=== PATIENT | male | born 1965 | race Caucasian/White ===

== ENCOUNTER 2018-04-22 12:10 | Observation (INO) | payer OTHER ==
--- NOTE | 2018-04-22 13:57 | ED ---
Lower Extremity - HPI Summary HPI Summary: Patient presents with left calf pain that has been progressing over the past month. He reports this started off as discomfort in the back of his ankle and has been traveling up his calf and now behind his knee. [place] like his leg might give out the other day due to pain when he was getting off of the bus. Denies numbness tingling weakness. Has some swelling in both LE's which he's attributed to his socks. He can still walk up and down stairs without difficulty and no history of back injury however he does report he thinks he has some arthritis in his back and hip. He has not tried anything for his symptoms. He denies smoking, history of cancer, trauma or recent travel, history of clots. His varicose veins in his lower extremities. He does admit his father has a history of clotting. - History of Current Complaint Chief Complaint: EDExtremityLower Stated Complaint: LT LEG PAIN Time Seen by Provider: 04/22/18 13:13 Hx Obtained From: Patient Pain Intensity: 4 - Allergies/Home Medications Allergies/Adverse Reactions: Allergies Allergy/AdvReac Type Severity Reaction Status Date / Time No Known Allergies Allergy Verified 04/22/18 12:37 Home Medications: Home Medications NK [No Home Medications Reported] 04/22/18 [History Confirmed 04/22/18] PMH/Surg Hx/FS Hx/Imm Hx Previously Healthy: Yes Endocrine/Hematology History: Denies: Hx Anticoagulant Therapy, Hx Blood Disorders, Hx Diabetes, Hx Anemia , Hx Unexplained Bleeding, Hx Coagulopothy Cardiovascular History: Denies: Hx Deep Vein Thrombosis, Hx Embolism, Hx Hypertension GI History: Denies: Hx Cirrhosis Musculoskeletal History: Reports: Hx Arthritis - pt dx himself w/ back and hip arthritis Sensory History: Reports: Hx Contacts or Glasses Opthamlomology History: Reports: Hx Contacts or Glasses Neurological History: Denies: Hx Peripheral Neuropathy, Hx Spinal Cord Injury Infectious Disease History: No Infectious Disease History: Denies: Traveled Outside the [place] in Last 30 Days - Family History Known Family History: Positive: Other - mom - bleeding ulcers, father - clots - Social History Occupation: Employed Full-time Lives: Alone Alcohol Use: Rare Hx Substance Use: No Substance Use Type: Reports: None Hx Tobacco Use: No Smoking Status (MU): Never Smoked Tobacco Review of Systems Constitutional: Negative Negative: Fever, Chills, Fatigue Positive: Chest Pain - had an episode of this yesterday morning Positive: Shortness Of Breath - had an episode of this yesterday morning. Negative: Cough Gastrointestinal: Negative Positive: no symptoms reported Musculoskeletal: Negative Skin: Negative Neurological: Negative Psychological: Normal All Other Systems Reviewed And Are Negative: Yes Physical Exam Triage Information Reviewed: Yes Vital Signs On Initial Exam: Initial Vitals Temp Pulse Resp BP Pulse Ox 97.5 F 91 14 128/82 99 04/22/18 12:34 04/22/18 12:34 04/22/18 12:34 04/22/18 12:34 04/22/18 12:34 Vital Signs Reviewed: Yes Appearance: Positive: Well-Appearing, No Pain Distress, Obese Skin: Positive: Warm, Skin Color Reflects Adequate Perfusion, Dry - mild B/L LE edema Lt > Rt w/ slight erythema about the skin - no fever to touch, no lesions , no ecchymosis Head/Face: Positive: Normal Head/Face Inspection Eyes: Positive: Normal, EOMI ENT: Positive: Hearing grossly normal Respiratory/Lung Sounds: Positive: Breath Sounds Present Cardiovascular: Positive: Pulses are Symmetrical in both Upper and Lower Extremities, Leg Edema Left - equivocal Lucita's; varicose v B/L, Leg Edema Right Musculoskeletal: Positive: Normal, Strength/ROM Intact - 5/5 in LE's, Pain @ - Spinous process paraspinal muscles are nontender to palpation; SI joints are nontender to palpation; almost full range of motion lumbar spine (limited due to body habitus and lack of flexibility) without pain or restriction - cannot reproduce symptoms; negative straight leg raise bilaterally; can stand on toes and heels; strength in lower extremities 5 out of 5 and equal bilaterally Neurological: Positive: Normal, Sensory/Motor Intact, Alert, Oriented to Person Place, Time, CN Intact II-III Psychiatric: Positive: Normal Diagnostics - Vital Signs Vital Signs Temp Pulse Resp BP Pulse Ox 04/22/18 12:34 97.5 F 91 14 128/82 99 - Laboratory Result Diagrams: 04/22/18 16:52 04/22/18 16:52 Lab Statement: Any lab studies that have been ordered have been reviewed, and results considered in the medical decision making process. Lower Extremity Course/Dx - Course Course Of Treatment: U/S LE: popliteal, peroneal and posterior tibial vv w/ DVT' s. Although pt currently denies CP/SOB he admits to these sx yesterday morning and w/ extensive DVT's, a CTA was ordered. Labs have been ordered as well. Pt's vitals are stable and he is comfortable. Signed out to Donal Orantes PA-C. - Diagnoses Provider Diagnoses: Deep vein thrombosis (DVT) of popliteal vein of left lower extremity, Peroneal DVT (deep venous thrombosis) Discharge - Sign-Out/Discharge Documenting (check all that apply): Sign-Out Patient Signing out patient TO: Donal Orantes - Discharge Plan Condition: Stable - Billing Disposition and Condition Condition: STABLE
--- NOTE | 2018-04-22 16:55 | RAD ---
Indication: Left calf pain. Duplex Doppler sonography of the deep venous system of the left lower extremity deep venous system was performed. Bilaterally the common femoral veins appear patent and compressible. Left proximal greater saphenous vein, proximal deep femoral vein, femoral vein, appear patent and compressible.There is echogenic material within the left popliteal vein which is occluded distally at the tibial peroneal trunk. Posterior tibial veins and peroneal veins are occluded. IMPRESSION: DEEP VENOUS THROMBOSIS INVOLVING THE LEFT POPLITEAL VEIN, BOTH PERONEAL VEINS AND BOTH POSTERIOR TIBIAL VEINS. MTDD
[2018-04-22 17:03] LABS: Hematocrit 42 % (42-52); Hemoglobin 14.5 g/dl (14.0-18.0); Mean Corpuscular HGB Conc 34 g/dl (31-36); Mean Corpuscular Hemoglobin 31 pg (27-31); Mean Corpuscular Volume 89 fL (80-94); Mean Platelet Volume 6.6 um3 (7.4-10.4); Platelet Count 335 10^3/ul (150-450); Red Blood Count 4.73 10^6/ul (4.0-5.4); Red Cell Distribution Width 13 % (10.5-15); White Blood Count 8.2 10^3/ul (3.5-10.8)
[2018-04-22 17:09] LABS: INR 1.17 (0.77-1.02)
[2018-04-22 17:25] LABS: EGFR Non-African American 94.7 (>60)
[2018-04-22] MEDS ORDERED: Iohexol 350* (CONTRAST) 500 ML MDV IV ONE (17:38)
--- NOTE | 2018-04-22 18:26 | RAD ---
Indication: Shortness of breath with chest pain. Contrast: Administered 85.3 ml of OMNIPAQUE 350 mg/ml CTA of the chest was performed after IV contrast administration. Coronal and sagittal reconstructed images were obtained. There is some motion artifact degrading the images. In the left lower lobe posterior segment pulmonary artery there is a filling defect with peripheral contrast suggestive of pulmonary embolus. No other major filling defects are noted. The aorta demonstrates no evidence of aortic dissection or aneurysmal dilatation. Small right pleural effusion is noted. No pulmonary nodules are identified. There is no mediastinal or hilar adenopathy noted. Axilla demonstrates no adenopathy. No definite pulmonary nodules are identified. There is interstitial edema noted consistent with vascular congestion. Atelectasis is noted in the periphery of the right lower lobe. Small right pleural effusion is noted. The visualized abdominal organs are otherwise unremarkable. Small cortical cysts are noted in the upper pole of the right kidney. IMPRESSION: Filling defect is noted in the posterior segmental artery in the left lower lobe consistent with pulmonary embolus. No other filling defects are definitively identified. Motion artifact degrades some images. Small right pleural effusion is noted. Interstitial edema with atelectasis in the right lower lobe.
--- NOTE | 2018-04-22 19:39 | PN ---
Progress Note - Progress Note Date of Service: 04/22/18 Note: Ultrasound positive for DVT 5. CTA chest positive for PE. Patient does not have PCP, so does not have good follow-up. Discussed patient with Dr. Danielle who will admit.
[2018-04-22] MEDS ORDERED: Enoxaparin(*) 100 MG/ML SYR SUBCUT ONE (19:40)
[2018-04-22] MEDS ORDERED: Ibuprofen TAB* 600 MG PO PRN (19:43)
[2018-04-22] MEDS ORDERED: Acetaminophen TAB* 325 MG PO PRN (19:43)
[2018-04-22] MEDS ORDERED: PROCHLORPERAZINE INJ 5 MG/ML 2 ML VIAL IV PRN (19:43)
[2018-04-22] MEDS ORDERED: Enoxaparin(*) 150 MG/ML 1 ML SYRINGE SUBCUT ONE (20:15)
[2018-04-22] MEDS: NS 0.9% 1000 ML* 1,000 ML IV SCH (20:23)
[2018-04-23 05:15] LABS: ABS Basophils 0.1 10^3/ul (0-0.2); ABS Eosinophils 0.2 10^3/ul (0-0.6); ABS Monocytes 0.6 10^3/ul (0-0.8); ABS Neutrophils 4.4 10^3/ul (1.5-7.7); ABS Nucleated RBC 0 10^3/ul; Eosinophil % 3.9 % (0-6); Hematocrit 38 % (42-52); Hemoglobin 13.1 g/dl (14.0-18.0); Lymphocyte % 16.1 % (25-47); Mean Corpuscular HGB Conc 34 g/dl (31-36); Mean Corpuscular Hemoglobin 30 pg (27-31); Mean Corpuscular Volume 88 fL (80-94); Mean Platelet Volume 6.6 um3 (7.4-10.4); Nucleated Red Blood Cells % 0; Platelet Count 326 10^3/ul (150-450); Red Blood Count 4.35 10^6/ul (4.0-5.4); Red Cell Distribution Width 13 % (10.5-15); White Blood Count 6.3 10^3/ul (3.5-10.8)
[2018-04-23 05:32] LABS: EGFR Non-African American 85.3 (>60)
--- NOTE | 2018-04-23 06:30 | HP ---
HISTORY AND PHYSICAL: DATE OF ADMISSION: 04/22/18 TIME OF EVALUATION: 07:15 p.m. PRIMARY CARE PROVIDER: The patient has no primary care provider. CHIEF COMPLAINT: Left leg pain. HISTORY OF PRESENT ILLNESS: Mr. Bermeo is a 52-year-old male with a past medical history of obesity wh o presented initially to [facility] with complaints of left leg pain and was then referred to our emergency room. The patient states that a month ago he woke up in the middle of the night to go to the bathroom and w hen he put weight on his left leg he had a sudden onset of left calf pain. He was able to ambulate b ack to bed and he has had left calf pain on and off for the past month. He states the pain would usu ally happen with exertion, but as he continued to walk the pain would subside and he was able to cont inue moving. He states that today he was walking towards work (less than a quarter mile) and he felt he would not be able to finish that distance, so he called the cab and went to [facility] where he was referred to the emergency room. The patient states a couple of weeks ago he had an episode of sudden onset of right- sided chest pain , pleuritic in nature, severe 8/10. The patient states he felt like he was being stabbed when he tri ed to take a deep breath, but after 15 minutes of breathing slowly the patient states the pain subsid ed and has not occurred again. The patient denies any prior episodes like this in the past. No falls, no trauma, no recent trips. He lives in [place], [place] in [place]. Denies any long car rides and also denies family history of blo od clots. Denies fevers, chills, cough, nausea, vomiting, diarrhea, abdominal pain, urinary complaints. MEDICATIONS: The patient takes aspirin sporadically for pain. ALLERGIES: No known drug allergies. FAMILY HISTORY: The patient states that his father had a problem with "blood clots", had strokes, melchor d heart attacks. His mother of a heart attack. He has no siblings and he does not recall any f amily history of blood clots in any other distant family members. SOCIAL HISTORY: The patient denies tobacco, alcohol, or drug use. Persons to notify are his ex- Natividad Bray, phone number is [phone] or his friend Yao Aguilera [phone]. REVIEW OF SYSTEMS: A 14-point review of systems was performed, and all the pertinent negatives descr ibed in the HPI. PHYSICAL EXAMINATION GENERAL: The patient is a pleasant, obese, middle-aged male lying in the ED stretcher in no acute di stress. VITAL SIGNS: Temperature 97.5, heart rate is 82, respiratory rate is 14, oxygen saturation 98% on ro om air, and blood pressure is 141/85. HEENT: Pupils are equal. Moist mucous membranes. CHEST: Breath sounds present bilaterally with no added sounds. CVS: Normal S1 and S2. Regular, rate, and rhythm. ABDOMEN: Obese, soft, bowel sounds are present. EXTREMITIES: There is mild left leg edema, no pitting. There is calf tenderness on palpation. NEUROLOGIC: He is alert and oriented x3. Able to move all 4 extremities. LABORATORY/IMAGING DATA: The patient had a CBC that shows RBC of 8.2, hemoglobin of 14.5, hematocri t of 42, platelets of 335. INR is 1.1. Chemistry showed a sodium of 139, potassium 4.4, chloride 10 5, bicarb of 24, BUN of 11, creatinine of 0.85, glucose of 85, calcium of 9.2. LFTs are normal. Left lower extremity DVT showed deep venous thrombosis involving the left popliteal vein, both perone al veins, and both posterior tibial veins. CT of the chest showed a filling defect noted in the posterior segmental artery in the left lower lob e consistent with pulmonary embolus. No other filling defects are definitely identified. There is s mall right pleural effusion with interstitial edema with atelectasis in the right lower lobe. EKG done on 04/22/18 at 1944 showed sinus rhythm at 73 beats per minute with no ST- T changes. Does have a normal R-wave progression. There is no prior EKG to compare. ASSESSMENT AND PLAN: Mr. Bermeo is a 52-year-old male with a past medical history of obesity who prese nted to the emergency room with more than a month of left calf pain, one episode of right-sided pleur itic chest pain, found to have left lower extremity DVT and pulmonary embolism. 1. Pulmonary embolism/DVT. The patient is stable at this time without tachycardia, hypotension, or hypoxia; but the concern is that he does not have a primary care provider and has had limited contact with the health care system. I suspect the findings on his CT of a right-sided pleural effusion and interstitial edema with atelectasis of the right lower lobe apparently associated with a prior PE a couple of weeks ago when he had this severe pleuritic chest pain on the right. The patient will be admitted as observation to the telemetry floor and he is going to have an echocar diogram done in the morning to assess his right ventricular function. I discussed with the patient his anticoagulation options and he wants to think about it and at this p oint he is going to be treated with Lovenox. I believe he will be a good candidate for a NOAC, but t he patient is scared from the side effects that he has heard on the TV commercials. In the morning arrangements can be made for a primary care provider and he can follow up with [facility] until he can establish with the PCP in the area. This is his first episode of unprovoked PE, but since there is this possible family history of blood clots from his father I am going to check a hypercoagulable workup. 2. DVT prophylaxis: The patient has a score of 5 on the DVT prophylaxis assessment guide and he is already on therapeutic Lovenox. SCDs are contraindicating in the setting of DVT. 3. Code status is full. TIME SPENT: Approximately 55-minutes was spent with the patient in interview, medical records, revie w of physical examination to complete the admission; more than half this time was spent [id number] with the patient in coordination of care. [id number]/[facility] #: [id number]
[2018-04-23] MEDS: NS 0.9% 1000 ML* 1,000 ML IV SCH (07:09)
[2018-04-23] MEDS ORDERED: Enoxaparin(*) 150 MG/ML 1 ML SYRINGE SUBCUT SCH (08:00)
[2018-04-23] MEDS ORDERED: Perflutren Lipid Microsphere* 3 ML VIAL ONE (08:06)
--- NOTE | 2018-04-23 08:19 | RAD ---
HISTORY: Left calf pain in a patient with "fam history of clots" TECHNIQUE: Multiple transverse and longitudinal ultrasound images were obtained of the veins of the left lower extremity using grayscale, color Doppler, and spectral Doppler imaging with and without compression and with augmentation. FINDINGS: VEINS: The common femoral vein, deep femoral vein and femoral vein are compressible throughout their course, with normal flow on color Doppler imaging and normal response to augmentation on spectral Doppler imaging. Within the left popliteal vein there is hyperechoic material within the lumen preventing venous wall apposition with compression. There is minimal flow passing this echogenic material. The paired posterior tibial veins and peroneal veins do not exhibit any significant flow. SOFT TISSUES: Grossly normal. No large popliteal fossa cyst was identified. IMPRESSION: Nonocclusive thrombus filling the left popliteal vein above the essentially occluded left infrapopliteal veins.
--- NOTE | 2018-04-23 09:42 | ECHO ---
Amended Report Patient: LUCHO ADEN [facility] Rec#: [id number] : 1965 Date: 04/23/2018 Age: 52y Height: 187.96 cm / 74.0 in Weight: 120.2 kg / 264.9 lbs Sex: M BSA: 2.45 Room#: 433 Admit Date#: 04/22/2018 Type: Inpatient Referring: Darya Mckeon MD Reading: Torey Sparks MD Radiation Protection Engineer: [facility] Tr[facility] Indication: Pulmonary embolism BP: 150/81 HR: 68 Rhythm: NSR Findings History: Obesity, left leg pain for about a month. Technical Comments: The study is technically difficult. The study is technically limited due to patient body habitus. Completed at 0840. Left Ventricle: The left ventricular chamber size is normal. Mild concentric left ventricular hypertrophy is observed. Global left ventricular wall motion and contractility are within normal limits. There is normal left ventricular systolic function. The estimated ejection fraction is 55-60%. There is no consistent Doppler evidence of clinically significant diastolic dysfunction. Left Atrium: The left atrium is mildly dilated. Right Ventricle: The right ventricle is not well visualized. The right ventricle is slightly dilated. The right ventricular global systolic function is normal. Right Atrium: The right atrium is mildly dilated. Aortic Valve: The aortic valve is trileaflet. There is no evidence of aortic valve thickening. There is no evidence of aortic regurgitation. There is no evidence of aortic stenosis. Mitral Valve: The mitral valve leaflets are mildly thickened. There is a trace of mitral regurgitation. There is no evidence of mitral stenosis. Tricuspid Valve: The tricuspid valve leaflets are normal. There is trace to mild tricuspid regurgitation. The right ventricular systolic pressure is estimated at 36 mmHg. There is evidence of mild pulmonary hypertension. There is no tricuspid stenosis. Pulmonic Valve: The pulmonic valve appears normal. There is a trace pulmonic regurgitation. There is no pulmonic stenosis. Pericardium: There is no significant pericardial effusion. A pericardial fat pad is visualized. Aorta: There is mild dilatation of the ascending aorta. There is no dilatation of the aortic arch. The aortic root is normal in size. Pulmonary Artery: The main pulmonary artery appears normal. Venous: The inferior vena cava is dilated. There is an approximate 50% respiratory change in the inferior vena cava dimension. Contrast: Definity was used to optimize study. Intravenous contrast was used to enhance endocardial border definition. Conclusions The study is technically limited due to patient body habitus. Completed at 0840. Mild concentric left ventricular hypertrophy is observed. There is normal left ventricular systolic function. The estimated ejection fraction is 55-60%. The right ventricle is not well visualized, inlimited views overall size is minimally increased and systolic function appears normal.. There is a trace of mitral regurgitation. There is trace to mild tricuspid regurgitation. There is evidence of mild pulmonary hypertension. There is a trace pulmonic regurgitation. No reports of prior studies are offered for comparison. Measurements Name Value Normal Range RVIDd (AP) 2D 3 cm (0.9 - 2.6) RVDdMajor (2D) 5.9 cm (2.2 - 4.4) RAd ISD 4CH 5.2 cm (3.4 - 4.9) RA (A4C)W 5.1 cm (2.9 - 4.6) IVSd (2D) 1.2 cm (0.6 - 1) LVPWd (2D) 1.2 cm (0.6 - 1) LVIDd (2D) 4.3 cm (3.6 - 5.4) LVIDs (2D) 2.3 cm - LV FS (2D) 45 % (25 - 45) Aortic Annulus 2.4 cm (1.4 - 2.6) Ao root diameter (2D) 3.5 cm (2.1 - 3.5) Ascending Ao 3.7 cm (2.1 - 3.4) Aortic arch 2.7 cm (1.8 - 3.4) LA dimension (AP) 2D 3.8 cm (2.3 - 3.8) LAd ISD 4CH 6 cm (2.9 - 5.3) LA ISD 4CH W 4.2 cm (2.5 - 4.5) Name Value Normal Range LA ESV SP 4CH (A/L) 63 ml - LA ESV SP 2CH (A/L) 90 ml - LA ESV BP (A/L) 83 ml - LA ESV BP (A/L) index 34 ml/m2 - LA ESV SP 4CH (MOD) 60 ml - LA ESV SP 2CH (MOD) 83 ml - Name Value Normal Range MV E-wave Vmax 0.71 m/sec - MV deceleration time 164.7 msec - MV A-wave Vmax 0.53 m/sec - MV E:A ratio 1.33 ratio - LV septal e' Vmax 0.08 m/sec - LV lateral e' Vmax 0.08 m/sec - LV E:e' septal ratio 8.88 ratio - LV E:e' lateral ratio 8.88 ratio - Name Value Normal Range AV Vmax 1.4 m/sec - AV VTI 29.93 cm - AV peak gradient 7.63 mmHg - AV mean gradient 3.88 mmHg - LVOT Vmax 1.1 m/sec - LVOT VTI 24.37 cm - LVOT peak gradient 4.92 mmHg - LVOT mean gradient 2.76 mmHg - SCARLET Vmax 0.94 m/sec - Name Value Normal Range TR Vmax 2.3 m/sec - TR peak gradient 21 mmHg - RAP 15 mmHg - RVSP 36 mmHg - IVC diameter 2.5 cm - Name Value Normal Range PV Vmax 0.81 m/sec - PV peak gradient 2.63 mmHg -
[2018-04-23 11:50] VITALS: BP 144/81
[2018-04-23] MEDS ORDERED: Apixaban* 2.5 MG TAB PO SCH (16:00)
--- NOTE | 2018-04-24 09:33 | DS ---
CC: Dr. Gupta * DISCHARGE SUMMARY: DATE OF ADMISSION: 04/22/18 DATE OF DISCHARGE: 04/23/18 ATTENDING PHYSICIAN: Dr. Darya Lopez. MY ATTENDING FOR TODAY: Dr. Corky Kenney.* (DICTATED BY AKIRA STUBBS NP) PRIMARY CARE PHYSICIAN: None. HOSPITAL COURSE: This is a very pleasant 52-year-old gentleman, who reports a 1 - month history of left leg pain and a brief period of stabbing chest pain and shortness of breath while at home, also a couple of weeks ago. The patient came to the emergency department when he had difficulty ambulating, describing symptoms of intermittent claudication on the left calf. The patient states he was also having difficulty with endurance stating that when he was walking across the room having to stop frequently to take rest secondary to pain in the leg and some intermittent shortness of breath. The patient presented to the emergency department with these complaints. Ultrasound of the lower extremities was performed to rule out DVT. Impression is that the patient has nonocclusive thrombus filling of the left popliteal vein and essentially occluded left infrapopliteal veins. The patient had a followup CAT scan as well. CTA of the chest revealed a filling defect noted in the posterior segmental artery of the left lower lobe consistent with pulmonary embolus. No other filling defects were definitively identified. The patient reports having not been to a doctor in 10 years. He has no primary care physician and no community resources. Due to his lack of followup and high risk, it was felt he should be admitted to the emergency department for observation overnight and initiation of anticoagulation. The patient was placed on Lovenox therapeutic 120 mg q.12 hours. He had the first dose in the ER last night and another dose at 8 a.m. this morning. The patient has tolerated it well. Upon examination today, the patient is not complaining of any shortness of breath, denies chest pain. No nausea, no vomiting, no fever, no chills. Does have some tenderness in the left lower calf, but otherwise no further constitutional complaints. PHYSICAL EXAMINATION: Today, the patient is awake, alert, and well appearing. Vital Signs: Blood pressure 144/81, heart rate 75, respiratory rate 16, O2 saturation 98% on room air with a temperature of 98.2. HEENT: The patient is atraumatic and normocephalic. PERRL with nonicteric sclerae. Neck is supple and nontender. No JVD noted. No carotid bruits auscultated. No thyromegaly noted. Cardiovascular: S1 and S2 are present. No murmurs, gallops, or rubs are noted. Rate and rhythm are regular. Lungs are clear bilaterally to auscultation with no wheezes, rhonchi, or rales. He has good air entry. Abdomen is soft, nontender, and nondistended. Positive bowel sounds in all 4 quadrants and no organomegaly noted. Musculoskeletal: There is no clubbing and no cyanosis. His left calf does have good distal pulses, +2 distal pulses on the left lower extremity. However, the skin in the calf does feel tight and he does have some tenderness described with mild palpation. There is no tenderness on the right lower extremity, also has +2 distal pulse on that side. He does have a steady gait. Neurologic: He is grossly intact with no focal deficits. Psychiatric: He is cooperative and appropriate. DIAGNOSTIC STUDIES/LAB DATA: WBC 6.3, RBC is 4.35, hemoglobin 13.1, hematocrit 38, platelets 326. Sodium 138, potassium 3.8, chloride 106, CO2 of 25, BUN 12, creatinine 0.93, GFR is 85.3, glucose 113, calcium 8.6. Total bilirubin 0.50, AST 12, ALT 14, alk phos 43. Total protein 7.5, albumin 4.0, globulin 3.5. INR is 1.17. Imaging: Ultrasound and CAT scan as described above. PLAN: The patient has been stabilized overnight. He will be discharged to home. He is currently in stable condition with no further complaints. Because the patient has not had any primary care followup, he has been set up with the [facility] at [facility] that has been scheduled for 04/27/18 at 2:30 p.m. The patient was also set up with Dr. Devin Gupta on 05/28/18 at 8:45 a.m. DISCHARGE MEDICATION: Includes apixaban 10 mg by mouth 2 times a day for 7 days. The patient's apixaban should be continued thereafter at the lower dose of 5 mg 2 times a day thereafter and then be followed closely with his primary care physician for resolution of symptoms and continued treatment. Also, of significant note, laboratories for hypercoagulability workup were drawn are not available yet. I explained to the patient, when he comes to the extensivist clinic or when he sees Dr. Gupta, the results of those tests will be revealed to him as they become available. The patient will have 1 dose of Eliquis this afternoon and then be discharged to home. The patient states understanding of his discharge instructions and his new medication. He has also been given materials and education on DVT and pulmonary embolus and the new medication he has been started on. AKIRA STUBBS, REN [id number]/[facility] #: [id number] MADELINE
== END 2018-04-23 16:30 ==
LOC: ED 12:10 → MEDTELE 19:37
PROVIDERS: ADMIT Internal Medicine; ATTEND Internal Medicine
DX: R07.9 Chest pain, unspecified (principal); R06.02 Shortness of breath; E66.9 Obesity, unspecified; M79.605 Pain in left leg; I26.99 Other pulmonary embolism without acute cor pulmonale; I82.4Z2 Acute embolism and thrombosis of unspecified deep veins of left distal lower extremity
CPT/HCPCS: 36415; 71275; 80048; 80053; 81241; 85025; 85027; 85300; 85303; 85306; 85610; 85613; 85730; 86147; 93005; 93306; 99284; A9270-GY; C8929; G0378; J1650; Q9967

== ENCOUNTER 2020-01-08 10:48 | Emergency (ER) | payer OTHER ==
[2020-01-08 11:56] LABS: ABS Basophils 0.1 10^3/ul (0-0.2); ABS Lymphocytes 0.6 10^3/ul (1.0-4.8); ABS Monocytes 1.2 10^3/ul (0-0.8); ABS Neutrophils 13.2 10^3/ul (1.5-7.7); Hematocrit 40 % (42-52); Hemoglobin 13.6 g/dL (14.0-18.0); Lymphocyte % 3.7 %; Mean Corpuscular HGB Conc 34 g/dL (31-36); Mean Corpuscular Hemoglobin 30 pg (27-31); Mean Corpuscular Volume 89 fL (80-94); Mean Platelet Volume 7.5 fL (7.4-10.4); Platelet Count 189 10^3/uL (150-450); Red Blood Count 4.52 10^6 /uL (4.18-5.48); Red Cell Distribution Width 14 % (10-15); White Blood Count 15.1 10^3/uL (3.5-10.8)
[2020-01-08 12:01] LABS: Albumin 3.6 g/dL (3.2-5.2); Albumin/Globulin Ratio 1.2 (1-3); BUN/Creatinine Ratio 11.6 (8-20); C Reactive Protein 188.76 mg/L (<8.01); Calcium 8.7 mg/dL (8.6-10.3); EGFR African American 75.6 (>60); EGFR Non-African American 62.5 (>60); Total Bilirubin 0.6 mg/dL (0.2-1.0); Total Protein 6.6 g/dL (6.4-8.9)
[2020-01-08] MEDS ORDERED: NS 0.9% 1000 ML** 1,000 ML IV ONE (12:30)
[2020-01-08] MEDS ORDERED: Clindamycin 600 MG/D5W BAG(*) 600 MG/50 ML BAG IV ONE (12:31)
[2020-01-08] MEDS ORDERED: Acetaminophen TAB* 325 MG PO ONE (13:22)
[2020-01-08 15:09] VITALS: BP 173/108
--- NOTE | 2020-01-09 06:04 | ED ---
Skin Complaint - HPI Summary HPI Summary: This patient is a 54-year-old male presenting to the ED with right lower extremity erythema, warmth and pain. He states symptoms began approximately 3 days ago. He denies any injury, abrasion or laceration. No trauma to the area. He states he had a history of DVT one year ago, took anticoagulation medications for approximately 6 weeks and never return to the ED to obtain more medications. He states this feels somewhat similar, however much worse. The erythema extends just below the knee to just above the right ankle without streaking to the upper leg or to the foot. Full flexion and extension of the knee and of the ankle. Pain to the right lower extremity throughout, not worse to the calf. Patient has been denying any fevers, sweats, chills. He states he did have one episode of vomiting yesterday, but felt that was due to the food he was eating. He states he has been feeling otherwise well. Denies any other body aches. - History of Current Complaint Chief Complaint: EDExtremityLower Time Seen by Provider: 01/08/20 10:57 Stated Complaint: RIGHT LEG PAIN PER PT Hx Obtained From: Patient Onset/Duration: Started Hours Ago Skin Exposure Onset/Duration: Hours Ago Timing: Constant Onset Severity: Moderate Current Severity: Moderate Pain Intensity: 3 Pain Scale Used: 0-10 Numeric Skin Location: Other: Character: Redness Aggravating Symptom(s): Nothing Alleviating Symptom(s): Nothing Associated Signs & Symptoms: Negative - Additional Pertinent History Primary Care Physician: EZIO - Allergy/Home Medications Allergies/Adverse Reactions: Allergies Allergy/AdvReac Type Severity Reaction Status Date / Time No Known Allergies Allergy Verified 01/08/20 10:52 Home Medications: Home Medications Cephalexin CAP* [Keflex CAP*] 500 mg PO QID #28 cap MDD 4 01/08/20 [Rx] traMADol TAB* [Ultram*] 50 mg PO Q8H PRN #12 tab MDD 3 01/08/20 [Rx] PMH/Surg Hx/FS Hx/Imm Hx Previously Healthy: Yes Endocrine/Hematology History: Denies: Hx Anticoagulant Therapy, Hx Blood Disorders, Hx Diabetes, Hx Anemia , Hx Unexplained Bleeding Cardiovascular History: Denies: Hx Deep Vein Thrombosis, Hx Embolism, Hx Hypertension GI History: Denies: Hx Cirrhosis Musculoskeletal History: Reports: Hx Arthritis - pt dx himself w/ back and hip arthritis Sensory History: Denies: Hx Contacts or Glasses, Hx Hearing Aid Opthamlomology History: Denies: Hx Contacts or Glasses Neurological History: Denies: Hx Peripheral Neuropathy, Hx Spinal Cord Injury - Immunization History Hx Pertussis Vaccination: No Immunizations Up to Date: Yes Infectious Disease History: No Infectious Disease History: Denies: Traveled Outside the [place] in Last 30 Days - Family History Known Family History: Positive: Other - mom - bleeding ulcers, father - clots - Social History Occupation: Unemployed Lives: With Family Alcohol Use: Occasionally Hx Substance Use: No Substance Use Type: Reports: None Hx Tobacco Use: No Smoking Status (MU): Never Smoked Tobacco Review of Systems Negative: Fever, Chills, Fatigue, Skin Diaphoresis Negative: Palpitations, Chest Pain Negative: Shortness Of Breath, Cough Genitourinary: Negative Positive: no symptoms reported, see HPI Negative: Arthralgia, Myalgia Positive: Other - erythema and warmth to the R lower extremity Neurological/Mental Status: Negative All Other Systems Reviewed And Are Negative: Yes Physical Exam Triage Information Reviewed: Yes Vital Signs On Initial Exam: Initial Vitals Temp Pulse Resp BP Pulse Ox 98.8 F 114 16 143/89 97 01/08/20 10:49 01/08/20 10:49 01/08/20 10:49 01/08/20 10:49 01/08/20 10:49 Vital Signs Reviewed: Yes Appearance: Positive: Well-Appearing, Well-Nourished Skin: Positive: Warm, Skin Color Reflects Adequate Perfusion, Other - right lower extremity erythema and warmth Head/Face: Positive: Normal Head/Face Inspection Eyes: Positive: EOMI, ANGELINE, Conjunctiva Clear Neck: Positive: Supple, No Lymphadenopathy Respiratory/Lung Sounds: Positive: Clear to Auscultation, Breath Sounds Present Cardiovascular: Positive: Normal, RRR, Pulses are Symmetrical in both Upper and Lower Extremities Musculoskeletal: Positive: Strength/ROM Intact Neurological: Positive: Speech Normal Psychiatric: Positive: Affect/Mood Appropriate AVPU Assessment: Alert Procedures - Sedation Patient Received Moderate/Deep Sedation with Procedure: No Diagnostics - Vital Signs Vital Signs Temp Pulse Resp BP Pulse Ox 01/08/20 15:08 97.6 F 102 20 173/108 98 01/08/20 14:00 24 01/08/20 13:00 114 14 92 01/08/20 12:55 104 20 142/97 100 01/08/20 12:00 115 20 99 01/08/20 11:55 116 22 119/84 100 01/08/20 11:36 103 17 142/84 97 01/08/20 11:24 104 30 130/73 97 01/08/20 11:23 101 18 97 01/08/20 10:49 98.8 F 114 16 143/89 97 - Laboratory Lab Results: Lab Results 01/08/20 01/08/20 Range/Units 11:37 11:37 WBC 15.1 H (3.5-10.8) 10^3/uL RBC 4.52 (4.18-5.48) 10^6 /uL Hgb 13.6 L (14.0-18.0) g/dL Hct 40 L (42-52) % MCV 89 (80-94) fL MCH 30 (27-31) pg MCHC 34 (31-36) g/dL RDW 14 (10-15) % Plt Count 189 (150-450) 10^3/uL MPV 7.5 (7.4-10.4) fL Neut % (Auto) 87.8 % Lymph % (Auto) 3.7 % [place] % (Auto) 8.0 % Eos % (Auto) 0.0 % Baso % (Auto) 0.5 % Absolute Neuts (auto) 13.2 H (1.5-7.7) 10^3/ul Absolute Lymphs (auto) 0.6 L (1.0-4.8) 10^3/ul Absolute Monos (auto) 1.2 H (0-0.8) 10^3/ul Absolute Eos (auto) 0.0 (0-0.6) 10^3/ul Absolute Basos (auto) 0.1 (0-0.2) 10^3/ul Absolute Nucleated RBC 0.0 10^3/ul Nucleated RBC % 0.0 Sodium 133 L (135-145) mmol/L Potassium 4.0 (3.5-5.0) mmol/L Chloride 102 (101-111) mmol/L Carbon Dioxide 25 (22-32) mmol/L Anion Gap 6 (2-11) mmol/L BUN 14 (6-24) mg/dL Creatinine 1.21 H (0.67-1.17) mg/dL Est GFR ( Amer) 75.6 (>60) Est GFR (Non-Af Amer) 62.5 (>60) BUN/Creatinine Ratio 11.6 (8-20) Glucose 128 H (70-100) mg/dL Calcium 8.7 (8.6-10.3) mg/dL Total Bilirubin 0.60 (0.2-1.0) mg/dL AST 17 (13-39) U/L ALT 34 (7-52) U/L Alkaline Phosphatase 46 (34-104) U/L C-Reactive Protein 188.76 H (<8.01) mg/L Total Protein 6.6 (6.4-8.9) g/dL Albumin 3.6 (3.2-5.2) g/dL Globulin 3.0 (2-4) g/dL Albumin/Globulin Ratio 1.2 (1-3) Result Diagrams: 01/08/20 11:37 01/08/20 11:37 Lab Statement: Any lab studies that have been ordered have been reviewed, and results considered in the medical decision making process. Course/Dx - Course Course Of Treatment: Physical examination there is erythema, warmth, and pain to palpation of the lower R leg just below the knee. This extends to just above the R ankle. Denies pain to the upper leg. No worsening pain on palpation to the R calf. No palpable cord. No signs of trauma or bruising. No evidence of streaking. Pt is tachycardic at 114 on arrival. Temp is 97.6. He was given 2L fluids and this reduced to 102. Pt was also given 600mg IV clindamycin. DVT US negative. Pt discharged with cellulitis and given Keflex. Will return to the ED for fevers or worsening symptoms. - Differential Diagnoses - Skin Complaint Differential Diagnoses: Other - DVT - Diagnoses Provider Diagnoses: Cellulitis Discharge ED - Sign-Out/Discharge Documenting (check all that apply): Patient Departure - Discharge Plan Condition: Stable Disposition: HOME Prescriptions: Cephalexin CAP* [Keflex CAP*] 500 mg PO QID #28 cap MDD 4 traMADol TAB* [Ultram*] 50 mg PO Q8H PRN #12 tab MDD 3 PRN Reason: Pain Patient Education Materials: Cellulitis (ED) [facility]errals: [facility] [Outside] - 2 Days No Primary Care Phys,NOPCP [Primary Care Provider] - Additional Instructions: Take 1 tab four times daily x 7 days Please follow up with PCP in a few days If you develop fevers or worsening redness - return to the ED - Billing Disposition and Condition Condition: STABLE Disposition: Home - Attestation Statements Provider Attestation: I was available for consult. This patient was seen by the [facility]. The patient was not presented to, seen by, or examined by me. Claus Rapp MD
== END 2020-01-08 15:08 | disposition home or self-care (01) ==
LOC: ED 10:48
DX: L03.115 Cellulitis of right lower limb (principal); Z86.718 Personal history of other venous thrombosis and embolism
CPT/HCPCS: 36415; 80053; 85025; 86140; 99283; A9270-GY

== ENCOUNTER 2020-01-12 00:01 | Inpatient (IN) | payer OTHER ==
[2020-01-12 02:05] LABS: ABS Basophils 0.1 10^3/ul (0-0.2); ABS Eosinophils 0.1 10^3/ul (0-0.6); ABS Lymphocytes 0.9 10^3/ul (1.0-4.8); ABS Monocytes 1.2 10^3/ul (0-0.8); ABS Neutrophils 11.6 10^3/ul (1.5-7.7); Hematocrit 41 % (42-52); Hemoglobin 13.9 g/dL (14.0-18.0); Lymphocyte % 6.6 %; Mean Corpuscular HGB Conc 34 g/dL (31-36); Mean Corpuscular Hemoglobin 31 pg (27-31); Mean Corpuscular Volume 89 fL (80-94); Mean Platelet Volume 7.3 fL (7.4-10.4); Platelet Count 297 10^3/uL (150-450); Red Blood Count 4.55 10^6 /uL (4.18-5.48); Red Cell Distribution Width 14 % (10-15); White Blood Count 13.8 10^3/uL (3.5-10.8)
[2020-01-12 02:11] LABS: INR 1.36 (0.82-1.09)
[2020-01-12 02:22] LABS: Calcium 9.2 mg/dL (8.6-10.3); EGFR African American 88.1 (>60); EGFR Non-African American 72.8 (>60); Globulin 3.9 g/dL (2-4); Potassium 3.8 mmol/L (3.5-5.0); Total Bilirubin 0.6 mg/dL (0.2-1.0); Total Protein 7.9 g/dL (6.4-8.9)
[2020-01-12 03:19] LABS: Erythrocyte Sed Rate 118 mm/Hr (0-19)
[2020-01-12] MEDS ORDERED: Piperacillin/Tazobac ADVAN(*) 3.375 GM in NS 0.9% 100 ML* 100 ML IVPB ONE (05:31)
--- NOTE | 2020-01-12 05:37 | ED ---
Lower Extremity - HPI Summary HPI Summary: Pt is a 54 y/o M presenting to the ED with a chief complaint of RLE pain. He states he came here Friday and was dxed with right lower leg cellulitis. started on oral abx which he dates has been taking 4 times a day but his sx have worsened. he said his symptoms initially started getting better. hen today the swelling returned and worsened significantly through the day. Increased redness. Weeping blisters. Increased pain. States he's been taking Tylenol for pain. He states he had a Doppler on Friday which showed no DVT. - History of Current Complaint Chief Complaint: EDExtremityLower Stated Complaint: RT LEG PAIN PER PT Time Seen by Provider: 01/12/20 05:11 Hx Obtained From: Patient Mechanism Of Injury: Unknown Onset of Pain: Days Onset/Duration: Days Severity Initially: Moderate Severity Currently: Moderate Pain Intensity: 3 Pain Scale Used: 0-10 Numeric Timing: Constant, Lasting Days Location: Is Discrete @ - R calf Associated Signs And Symptoms: Positive: Swelling, Redness Aggravating Factor(s): Nothing Alleviating Factor(s): Nothing Able to Bear Weight: Yes - Allergies/Home Medications Allergies/Adverse Reactions: Allergies Allergy/AdvReac Type Severity Reaction Status Date / Time eggplant Allergy Vomiting Verified 01/12/20 12:09 tomato Allergy Vomiting Verified 01/12/20 12:09 Home Medications: Home Medications Cephalexin CAP* [Keflex CAP*] 500 mg PO QID #28 cap MDD 4 01/08/20 [Rx Confirmed 01/12/20] traMADol TAB* [Ultram*] 50 mg PO Q8H PRN #12 tab MDD 3 01/08/20 [Rx Confirmed ] PMH/Surg Hx/FS Hx/Imm Hx Previously Healthy: Yes Endocrine/Hematology History: Denies: Hx Anticoagulant Therapy, Hx Blood Disorders, Hx Diabetes, Hx Anemia , Hx Unexplained Bleeding Cardiovascular History: Denies: Hx Deep Vein Thrombosis, Hx Embolism, Hx Hypertension GI History: Denies: Hx Cirrhosis Musculoskeletal History: Reports: Hx Arthritis - pt dx himself w/ back and hip arthritis Sensory History: Denies: Hx Contacts or Glasses, Hx Hearing Aid Opthamlomology History: Denies: Hx Contacts or Glasses Neurological History: Denies: Hx Peripheral Neuropathy, Hx Spinal Cord Injury Infectious Disease History: No Infectious Disease History: Denies: Traveled Outside the [place] in Last 30 Days - Family History Known Family History: Positive: Other - mom - bleeding ulcers, father - clots - Social History Alcohol Use: Occasionally Hx Substance Use: No Substance Use Type: Reports: None Hx Tobacco Use: No Smoking Status (MU): Never Smoked Tobacco Review of Systems - ROS Summary Review of Systems Summary: Home Medications Medication Instructions Recorded Confirmed Type Cephalexin CAP* [Keflex CAP*] 500 mg PO QID #28 cap MDD 4 01/08/20 01/12/20 Rx traMADol TAB* [Ultram*] 50 mg PO Q8H PRN #12 tab MDD 3 01/08/20 01/12/20 Rx Positive: Myalgia, Edema Positive: Rash, Other - blisters, purulence, erythema All Other Systems Reviewed And Are Negative: Yes Physical Exam - Summary Physical Exam Summary: General: Obese, unkempt male. No acute distress. HEENT: Normocephalic, Atraumatic. Eyes: Conjuctiva normal, PERRL. Oropharynx: Clear, mucous membranes moist, (-) exudates. Neck: Soft, FROM, (-) lymphadenopathy, (-) thyromegaly, (-) JVD. Cardiovascular: Normal sinus rhythm, (-) murmur. Lungs: Clear to auscultation bilaterally (-) wheezes, (-) rales, (-) rhonchi. Abdomen: Soft, non-tender, non-distended, (-) organomegaly, normal bowel sounds. Back: (-) CVA tenderness Extremities: Significant edema and erythema of the RLE, predominantly distal to the knee, including the ankle and foot. Normal pulses and capillary refill. Significant erythema with blisters. Skin: Warm, dry, (-) rash. Neuro: Alert and oriented x3, moves all extremities equally. No ataxia. No gait disturbance. No sensory deficit. Normal strength, normal sensation. Psychiatric: Mood normal, affect normal. Triage Information Reviewed: Yes Vital Signs On Initial Exam: Initial Vitals Temp Pulse Resp BP Pulse Ox 96.6 F 112 20 134/78 96 01/12/20 00:02 01/12/20 00:02 01/12/20 00:02 01/12/20 00:02 01/12/20 00:02 Vital Signs Reviewed: Yes Procedures - Sedation Patient Received Moderate/Deep Sedation with Procedure: No Diagnostics - Vital Signs Vital Signs Temp Pulse Resp BP Pulse Ox 01/12/20 02:12 98.5 F 100 16 124/82 99 01/12/20 00:02 96.6 F 112 20 134/78 96 - Laboratory Lab Results: Lab Results 01/12/20 01/12/20 01/12/20 Range/Units 01:58 01:58 01:58 WBC 13.8 H (3.5-10.8) 10^3/uL RBC 4.55 (4.18-5.48) 10^6 /uL Hgb 13.9 L (14.0-18.0) g/dL Hct 41 L (42-52) % MCV 89 (80-94) fL MCH 31 (27-31) pg MCHC 34 (31-36) g/dL RDW 14 (10-15) % Plt Count 297 (150-450) 10^3/uL MPV 7.3 L (7.4-10.4) fL Neut % (Auto) 83.6 % Lymph % (Auto) 6.6 % [place] % (Auto) 8.4 % Eos % (Auto) 1.0 % Baso % (Auto) 0.4 % Absolute Neuts (auto) 11.6 H (1.5-7.7) 10^3/ul Absolute Lymphs (auto) 0.9 L (1.0-4.8) 10^3/ul Absolute Monos (auto) 1.2 H (0-0.8) 10^3/ul Absolute Eos (auto) 0.1 (0-0.6) 10^3/ul Absolute Basos (auto) 0.1 (0-0.2) 10^3/ul Absolute Nucleated RBC 0.0 10^3/ul Nucleated RBC % 0.0 ESR 118 H (0-19) mm/Hr INR (Anticoag Therapy) 1.36 H (0.82-1.09) Sodium 136 (135-145) mmol/L Potassium 3.8 (3.5-5.0) mmol/L Chloride 101 (101-111) mmol/L Carbon Dioxide 25 (22-32) mmol/L Anion Gap 10 (2-11) mmol/L BUN 17 (6-24) mg/dL Creatinine 1.06 (0.67-1.17) mg/dL Est GFR ( Amer) 88.1 (>60) Est GFR (Non-Af Amer) 72.8 (>60) BUN/Creatinine Ratio 16.0 (8-20) Glucose 110 H (70-100) mg/dL Lactic Acid (0.5-2.0) mmol/L Calcium 9.2 (8.6-10.3) mg/dL Total Bilirubin 0.60 (0.2-1.0) mg/dL AST 40 H (13-39) U/L ALT 83 H (7-52) U/L Alkaline Phosphatase 100 (34-104) U/L Total Protein 7.9 (6.4-8.9) g/dL Albumin 4.0 (3.2-5.2) g/dL Globulin 3.9 (2-4) g/dL Albumin/Globulin Ratio 1.0 (1-3) 02//20 Range/Units 01:58 WBC (3.5-10.8) 10^3/uL RBC (4.18-5.48) 10^6 /uL Hgb (14.0-18.0) g/dL Hct (42-52) % MCV (80-94) fL MCH (27-31) pg MCHC (31-36) g/dL RDW (10-15) % Plt Count (150-450) 10^3/uL MPV (7.4-10.4) fL Neut % (Auto) % Lymph % (Auto) % [place] % (Auto) % Eos % (Auto) % Baso % (Auto) % Absolute Neuts (auto) (1.5-7.7) 10^3/ul Absolute Lymphs (auto) (1.0-4.8) 10^3/ul Absolute Monos (auto) (0-0.8) 10^3/ul Absolute Eos (auto) (0-0.6) 10^3/ul Absolute Basos (auto) (0-0.2) 10^3/ul Absolute Nucleated RBC 10^3/ul Nucleated RBC % ESR (0-19) mm/Hr INR (Anticoag Therapy) (0.82-1.09) Sodium (135-145) mmol/L Potassium (3.5-5.0) mmol/L Chloride (101-111) mmol/L Carbon Dioxide (22-32) mmol/L Anion Gap (2-11) mmol/L BUN (6-24) mg/dL Creatinine (0.67-1.17) mg/dL Est GFR ( Amer) (>60) Est GFR (Non-Af Amer) (>60) BUN/Creatinine Ratio (8-20) Glucose (70-100) mg/dL Lactic Acid 1.2 (0.5-2.0) mmol/L Calcium (8.6-10.3) mg/dL Total Bilirubin (0.2-1.0) mg/dL AST (13-39) U/L ALT (7-52) U/L Alkaline Phosphatase (34-104) U/L Total Protein (6.4-8.9) g/dL Albumin (3.2-5.2) g/dL Globulin (2-4) g/dL Albumin/Globulin Ratio (1-3) Result Diagrams: 01/12/20 01:58 01/12/20 01:58 Lab Statement: Any lab studies that have been ordered have been reviewed, and results considered in the medical decision making process. Lower Extremity Course/Dx - Course Course Of Treatment: 54-year-old male presents with a worsening right lower leg swelling and pain. Started on . Was seen here Friday started on what sounds like Keflex. He states he's been taking his medicine. And initially seemed to be getting better. However today the swelling has returned. More erythema. Now has weeping blisters and increased pain as well. Taking Tylenol for pain. Physical exam he has significant erythema and tenderness. Large weeping blisters. Good pulse and capillary refill distally. Laboratories demonstrated an elevated white count. Normal lactate. Patient initially refused a DVT study. He was conflicted with having the painful study done again. He denied any narcotics because he didn't want to feel loopy. Did accept Tylenol for pain. Agreed to admission for IV antibiotics. Agreed to DVT. Patient referred to hospitalist for admission. - Diagnoses Provider Diagnoses: Leg edema, Lower extremity cellulitis Discharge ED - Sign-Out/Discharge Documenting (check all that apply): Patient Departure - Admit - Discharge Plan Condition: Stable Disposition: ADMITTED TO [facility] - Billing Disposition and Condition Condition: STABLE Disposition: Admitted to [facility] - Attestation Statements Document Initiated by Blancaibe: Yes Documenting Scribe: Cesia Morales Provider For Whom Ming is Documenting (Include Credential): Pearl Yañez MD. Scribe Attestation: Cesia Stewart, scribed for Pearl Yañez MD. on 01/12/20 at 2041. Scribe Documentation Reviewed: Yes Provider Attestation: The documentation as recorded by the scribe, Cesia Morales accurately reflects the service I personally performed and the decisions made by me, Pearl Yañez MD. Status of Scribe Document: Viewed
[2020-01-12 05:44] LABS: Urine Appearance Cloudy; Urine Bilirubin Negative (Negative); Urine Blood 1+ (Negative); Urine Color Amber; Urine Glucose Negative (Negative); Urine Ketones Trace (Negative); Urine Nitrite Negative (Negative); Urine Protein 1+(30 mg/dL) (Negative); Urine Specific Gravity 1.028 (1.010-1.030); Urine Urobilinogen Negative (Negative)
[2020-01-12 05:48] LABS: Urine Bacteria Absent (Absent); Urine Red Blood Cell Absent (Absent); Urine Squamous Epithelial Cell Present (Absent); Urine White Blood Cell Trace(0-5/hpf) (Absent)
--- NOTE | 2020-01-12 07:06 | ED ---
Progress - Progress Note Progress Note: This pt was signed out from Dr. Yañez to Dr. Pablo at shift change on 01/12/20 at 0700. Course/Dx - Diagnoses Provider Diagnoses: Leg edema, Lower extremity cellulitis Discharge ED - Sign-Out/Discharge Documenting (check all that apply): Receiving Sign-Out Receiving patient FROM: Pearl Yañez - Discharge Plan Condition: Stable Referrals: [facility] [Outside] - Attestation Statements Document Initiated by Scribe: Yes Documenting Scribe: Keiry Doran Provider For Whom Scribe is Documenting (Include Credential): Aguilar Pablo MD Scribe Attestation: IKeiry, scribed for Aguilar Pablo MD on 01/12/20 at 0705. Status of Scribe Document: Viewed
[2020-01-12] MEDS ORDERED: Acetaminophen TAB* 325 MG PO ONE (07:42)
[2020-01-12] MEDS ORDERED: Docusate CAP* 100 MG PO PRN (08:14)
[2020-01-12] MEDS ORDERED: Ondansetron INJ* 2 MG/ML VIAL IV PRN (08:15)
[2020-01-12 08:37] LABS: C Reactive Protein 264.33 mg/L (<8.01)
[2020-01-12] MEDS ORDERED: Zosyn per Pharmacy* NOTE FOLLOW UP SCH (09:00)
[2020-01-12] MEDS: Piperacillin/Tazobac ADVAN(*) 3.375 GM in NS 0.9% 100 ML* 100 ML IVPB SCH ×2 (11:23→17:42)
[2020-01-12] MEDS: Enoxaparin(*) 40 MG/0.4 ML SYR SUBCUT SCH (11:23)
[2020-01-12] MEDS: Ibuprofen TAB* 400 MG PO PRN ×2 (11:23→17:42)
[2020-01-12] MEDS: Acetaminophen TAB* 325 MG PO PRN ×2 (14:17→20:13)
[2020-01-12] MEDS: NS 0.9% 1000 ML** 1,000 ML IV SCH (17:43)
--- NOTE | 2020-01-12 22:34 | HP ---
HISTORY AND PHYSICAL: DATE OF ADMISSION: 01/12/20 CHIEF COMPLAINT: Right lower extremity pain and swelling. HISTORY OF PRESENT ILLNESS: This 54-year-old male presented to the emergency room 4 days after being diagnosed with lower extremity cellulitis. On the prior ER visit, he was started on oral Keflex. He went home, however, his pain continued to get worse, swelling continued to get worse and the redness as well. He came into the ER to be further evaluated. On evaluation, his leg was noted to be much more erythematous and more swollen. He was evaluated and hospitalist service called to assist and evaluate the patient for admission. He was seen and evaluated by me in the emergency room. History was obtained as above. The patient denies any trauma. No insect bite or injury to his lower extremity. He works in [employer]. He does have significant amount of day standing on his leg. He denies any fever or chills, but he does report significant fatigue and malaise. PAST MEDICAL HISTORY: Significant for generalized arthritis. MEDICATIONS: Denies any other than the Keflex, which was prescribed to him 4 days prior. ALLERGIES: He is allergic to TOMATO and EGGPLANT. FAMILY HISTORY: Father has history of coronary artery disease. Mother has history of peptic ulcer disease. SOCIAL HISTORY: No tobacco, no alcohol, no illicit drug use. He works in the [employer] at [employer]. Single. No kids. REVIEW OF SYSTEMS: As per HPI. Remaining others unremarkable. PHYSICAL EXAMINATION GENERAL: He is awake, alert, oriented, pleasant, slightly poor hygiene. VITAL SIGNS: Blood pressure 146/71, pulse 102, temperature 97, respirations 16 , satting 99%. HEENT: Normocephalic, atraumatic. Extraocular muscles intact. NECK: Supple. No carotid bruit. LUNGS: Good air flow bilaterally. ABDOMEN: Positive bowel sounds. Soft, nontender, nondistended, obese. EXTREMITIES: Right lower extremity erythema. DIAGNOSTIC STUDY: CBC shows white count 15.8, hemoglobin 13, hematocrit 41, platelet 297, INR 1.3. Chemistry shows sodium 136, potassium 3.8, BUN 17, creatinine 1, glucose 110. Lactic 1.2. AST 40, ALT 83, CRP 264. UA: 1+ protein, 1+ blood, negative bacteria. Antistreptolysin titer negative. Ultrasound, right lower extremity, no evidence of DVT. ASSESSMENT AND PLAN: This is a 54-year-old who comes in with a right lower extremity cellulitis, will be admitted for cellulitis, failed outpatient Keflex. 1. The patient will be placed on IV Zosyn as per pharmacy. 2. Tylenol p.r.n. for pain and alternate with Motrin. 3. DVT prophylaxis: Lovenox 40 subcu daily. [id number]/[facility] #: [id number] MTDD
[2020-01-13] MEDS: Ibuprofen TAB* 400 MG PO PRN ×4 (00:11→18:36)
[2020-01-13] MEDS: Piperacillin/Tazobac ADVAN(*) 3.375 GM in NS 0.9% 100 ML* 100 ML IVPB SCH ×2 (02:10→09:30)
[2020-01-13] MEDS: Acetaminophen TAB* 325 MG PO PRN ×4 (04:21→21:12)
[2020-01-13] MEDS: Pantoprazole TAB * 40 MG TAB PO SCH (05:47)
[2020-01-13 06:25] LABS: ABS Eosinophils 0.1 10^3/ul (0-0.6); ABS Lymphocytes 0.8 10^3/ul (1.0-4.8); Eosinophil % 1.2 %; Hematocrit 38 % (42-52); Hemoglobin 12.9 g/dL (14.0-18.0); Lymphocyte % 8.2 %; Mean Corpuscular HGB Conc 34 g/dL (31-36); Mean Corpuscular Hemoglobin 30 pg (27-31); Mean Corpuscular Volume 90 fL (80-94); Mean Platelet Volume 7.3 fL (7.4-10.4); Platelet Count 296 10^3/uL (150-450); Red Blood Count 4.26 10^6 /uL (4.18-5.48); Red Cell Distribution Width 14 % (10-15)
[2020-01-13 06:37] LABS: Calcium 8.4 mg/dL (8.6-10.3); Magnesium 2.2 mg/dL (1.9-2.7); Potassium 3.9 mmol/L (3.5-5.0)
[2020-01-13 06:43] LABS: BUN/Creatinine Ratio 16.8 (8-20); EGFR African American 93.1 (>60); Phosphorus 2.7 mg/dL (2.5-5.0)
--- NOTE | 2020-01-13 08:54 | PN ---
Subjective Date of Service: 01/13/20 Interval History: Patient seen today, still complaining of his right leg pain. No fever and his wbc improving. His leg does appears more edematous, no improvement as compared to yesterday. Increased blisters and secretions. I discussed with ID and will see patient today. Currently on Zosyn Past Medical History: Unchanged from Admission Objective Active Medications: Acetaminophen (Tylenol Tab*) 650 mg PO Q4H PRN PRN Reason: PAIN Last Admin: 01/13/20 04:21 Dose: 650 mg Docusate Sodium (Colace Cap*) 100 mg PO BID PRN PRN Reason: CONSTIPATION Enoxaparin Sodium (Lovenox(*)) 40 mg SUBCUT Q24H [facility] Last Admin: 01/12/20 11:23 Dose: 40 mg Sodium Chloride (Ns 0.9% 1000 Ml) 1,000 mls @ 100 mls/hr IV PER RATE [facility] Stop: 01/14/20 08:14 Last Admin: 01/12/20 17:43 Dose: 100 mls/hr Piperacillin Sod/Tazobactam (Sod 3.375 gm/ Sodium Chloride) 100 mls @ 25 mls/ hr IVPB Q8H [facility] Last Admin: 01/13/20 02:10 Dose: 25 mls/hr Ibuprofen (Motrin Tab*) 400 mg PO Q6H PRN PRN Reason: PAIN - SEVERE Last Admin: 01/13/20 06:16 Dose: 400 mg Ondansetron HCl (Zofran Inj*) 4 mg IV Q6H PRN PRN Reason: NAUSEA Pantoprazole Sodium (Protonix Tab*) 40 mg PO DAILY@0600 [facility] Last Admin: 01/13/20 05:47 Dose: Not Given Pharmacy Consult (Zosyn Per Pharmacy*) 1 note FOLLOW UP .ZOSYN PER PHARMACY [facility] Vital Signs - 8 hr 01/13/20 01/13/20 02:56 08:03 Temperature 97.7 F 97.5 F Pulse Rate 89 93 Respiratory 16 18 Rate Blood Pressure 122/54 141/75 (mmHg) O2 Sat by Pulse 97 95 Oximetry Oxygen Devices in Use Now: None Appearance: Awake, alert. no distress. RLE Eyes: No Scleral Icterus, PERRLA Ears/Nose/Mouth/Throat: NL Teeth, Lips, Gums, Mucous Membranes Moist Neck: Trachea Midline Respiratory: Symmetrical Chest Expansion and Respiratory Effort, Clear to Auscultation Cardiovascular: NL Sounds; No Murmurs; No JVD Result Diagrams: 01/13/20 05:46 01/13/20 05:46 Additional Lab and Data: Lab Results 01/12/20 01/12/20 01/12/20 Range/Units 01:58 01:58 01:58 WBC 13.8 H (3.5-10.8) 10^3/uL RBC 4.55 (4.18-5.48) 10^6 /uL Hgb 13.9 L (14.0-18.0) g/dL Hct 41 L (42-52) % MCV 89 (80-94) fL MCH 31 (27-31) pg MCHC 34 (31-36) g/dL RDW 14 (10-15) % Plt Count 297 (150-450) 10^3/uL MPV 7.3 L (7.4-10.4) fL Neut % (Auto) 83.6 % Lymph % (Auto) 6.6 % [place] % (Auto) 8.4 % Eos % (Auto) 1.0 % Baso % (Auto) 0.4 % Absolute Neuts (auto) 11.6 H (1.5-7.7) 10^3/ul Absolute Lymphs (auto) 0.9 L (1.0-4.8) 10^3/ul Absolute Monos (auto) 1.2 H (0-0.8) 10^3/ul Absolute Eos (auto) 0.1 (0-0.6) 10^3/ul Absolute Basos (auto) 0.1 (0-0.2) 10^3/ul Absolute Nucleated RBC 0.0 10^3/ul Nucleated RBC % 0.0 ESR 118 H (0-19) mm/Hr INR (Anticoag Therapy) 1.36 H (0.82-1.09) Sodium 136 (135-145) mmol/L Potassium 3.8 (3.5-5.0) mmol/L Chloride 101 (101-111) mmol/L Carbon Dioxide 25 (22-32) mmol/L Anion Gap 10 (2-11) mmol/L BUN 17 (6-24) mg/dL Creatinine 1.06 (0.67-1.17) mg/dL Est GFR ( Amer) 88.1 (>60) Est GFR (Non-Af Amer) 72.8 (>60) BUN/Creatinine Ratio 16.0 (8-20) Glucose 110 H (70-100) mg/dL Lactic Acid (0.5-2.0) mmol/L Calcium 9.2 (8.6-10.3) mg/dL Total Bilirubin 0.60 (0.2-1.0) mg/dL AST 40 H (13-39) U/L ALT 83 H (7-52) U/L Alkaline Phosphatase 100 (34-104) U/L Total Protein 7.9 (6.4-8.9) g/dL Albumin 4.0 (3.2-5.2) g/dL Globulin 3.9 (2-4) g/dL Albumin/Globulin Ratio 1.0 (1-3) 01/12/20 Range/Units 01:58 WBC (3.5-10.8) 10^3/uL RBC (4.18-5.48) 10^6 /uL Hgb (14.0-18.0) g/dL Hct (42-52) % MCV (80-94) fL MCH (27-31) pg MCHC (31-36) g/dL RDW (10-15) % Plt Count (150-450) 10^3/uL MPV (7.4-10.4) fL Neut % (Auto) % Lymph % (Auto) % [place] % (Auto) % Eos % (Auto) % Baso % (Auto) % Absolute Neuts (auto) (1.5-7.7) 10^3/ul Absolute Lymphs (auto) (1.0-4.8) 10^3/ul Absolute Monos (auto) (0-0.8) 10^3/ul Absolute Eos (auto) (0-0.6) 10^3/ul Absolute Basos (auto) (0-0.2) 10^3/ul Absolute Nucleated RBC 10^3/ul Nucleated RBC % ESR (0-19) mm/Hr INR (Anticoag Therapy) (0.82-1.09) Sodium (135-145) mmol/L Potassium (3.5-5.0) mmol/L Chloride (101-111) mmol/L Carbon Dioxide (22-32) mmol/L Anion Gap (2-11) mmol/L BUN (6-24) mg/dL Creatinine (0.67-1.17) mg/dL Est GFR ( Amer) (>60) Est GFR (Non-Af Amer) (>60) BUN/Creatinine Ratio (8-20) Glucose (70-100) mg/dL Lactic Acid 1.2 (0.5-2.0) mmol/L Calcium (8.6-10.3) mg/dL Total Bilirubin (0.2-1.0) mg/dL AST (13-39) U/L ALT (7-52) U/L Alkaline Phosphatase (34-104) U/L Total Protein (6.4-8.9) g/dL Albumin (3.2-5.2) g/dL Globulin (2-4) g/dL Albumin/Globulin Ratio (1-3) Microbiology and Other Data: Microbiology 01/12/20 01:41 Aerobic Blood Culture - Preliminary Blood Venous No Growth Day 1 Anaerobic Blood Culture - Preliminary No Growth Day 1 01/12/20 01:56 Aerobic Blood Culture - Preliminary Blood Venous No Growth Day 1 Anaerobic Blood Culture - Preliminary No Growth Day 1 Assess/Plan/Problems-Billing Assessment: 54 y/o male presented to ED for persistent RLE cellulitis failed outpatient Kelfex. Now on Zosyn - Patient Problems (1) Cellulitis Current Visit: Yes Status: Acute Code(s): L03.90 - CELLULITIS, UNSPECIFIED SNOMED Code(s): 955553629 Comment: - Failed outpatient keflex - Now on Zosyn day #2 - No significant improvement despite zosyn. I did call ID for further antibiotic coverage recommendations (Vanco, Merropene etc...) - Will send for Xray to rule out subcutaneous air - US of leg negative for DVT on admissions (2) DVT prophylaxis Current Visit: Yes Status: Acute Code(s): Z29.9 - ENCOUNTER FOR PROPHYLACTIC MEASURES, UNSPECIFIED SNOMED Code(s): 473311822 Comment: - Lovenox 40 mg SQ daily
--- NOTE | 2020-01-13 09:11 | PN ---
Work Excuse - Work Note Work Note: The above employee has been evaluated on 01/12/20. The physician has instructed the employee concerning further work as described below. Work Status: [Patient is admitted in the hospital on 01/12/20 and he remains in the hospital for his acute medical illness. Once patient is cleared for discharge will follow up with further recommendations. At this time patient is to remain in the hospital] William Dougherty MD 01/13/200910
[2020-01-13] MEDS: NS 0.9% 1000 ML** 1,000 ML IV SCH ×2 (09:30→21:09)
[2020-01-13] MEDS: Enoxaparin(*) 40 MG/0.4 ML SYR SUBCUT SCH (09:30)
[2020-01-13] MEDS ORDERED: Clindamycin 600 MG/D5W BAG(*) 600 MG/50 ML BAG IV SCH (10:00)
--- NOTE | 2020-01-13 11:13 | CONS ---
CONSULTATION REPORT: DATE OF CONSULT: 01/13/20 REQUESTING PHYSICIAN: Dr. Dougherty. CONSULTING SERVICE: Infectious Disease. REASON FOR CONSULTATION: Right leg cellulitis. IMPRESSION: 1. Right lower extremity cellulitis with bulla formation, which is typical of Group A streptococcus toxin production. 2. Morbid obesity. 3. History of deep venous thrombosis and pulmonary embolism. RECOMMENDATIONS: We will change his antibiotics to clindamycin 600 mg IV every 8 hours and reassess tomorrow. He will keep the leg elevated as much as possible. Most of his pain and swelling related symptoms are gravity related. HISTORY OF PRESENT ILLNESS: This is a 54-year-old male with obesity, history of PE, admitted with right leg pain and swelling that had been going on for a few weeks. He had been seen in the emergency room and started on cephalexin. Despite that, he had progression of swelling, pain, and redness. He did not have much in the way of fevers, chills, or sweats. He came to the hospital on 01/12/20. He had a Doppler ultrasound that showed no thrombus. He was started on Zosyn. The redness is starting to come down a bit he thinks today. His swelling persists. He is continuing to have pain, particularly with when he is up on it more or his leg is dangling. Once he is back in bed, the pain comes way back down. He has not had infection like this in the past. PAST MEDICAL HISTORY: 1. DVT and pulmonary embolism. 2. Arthritis. MEDICATIONS: 1. Tylenol. 2. Enoxaparin. 3. Docusate. 4. Ibuprofen. 5. Zosyn 3.375 g every 8 hours. 6. Pantoprazole. ALLERGIES: No known drug allergies. FAMILY HISTORY: Father had coronary artery disease. Mother had peptic ulcer disease. SOCIAL HISTORY: He is a nonsmoker. He works at [employer] at [place]. He lives in apartment. He has a pet cat. REVIEW OF SYSTEMS: All negative except as noted above to 12-point review of systems. PHYSICAL EXAM: Vital Signs: Temperature 36.4, heart rate 90, respiratory rate 18, blood pressure 141/75, oxygen saturation 95% on room air. In general, he is awake, not in distress. Neurologic: He is oriented x3. Follows all commands. HEENT: There is no conjunctival hemorrhage. Oropharynx without lesions. Neck is supple without mass. Heart is regular rate and rhythm without murmurs, rubs, or gallops. Lungs are clear to auscultation bilaterally. Abdomen: Soft, nontender, nondistended. Bowel sounds present. Skin: There is no rash or splinter hemorrhage. Musculoskeletal: There is no spine tenderness to palpation. On the right leg below the knee and above the ankle, there is diffuse erythema with mild warmth and edema with tenderness. There is no crepitus or fluctuance. There are multiple confluent bullae with serous contents and some serous drainage. DIAGNOSTIC STUDIES/LAB DATA: White blood cell count 10, down from 13.8; creatinine is 1; CRP was 264. Please see impressions and recommendations outlined above that I discussed with Dr. Dougherty. Thanks for asking me to see Chica Jean-Claude in consultation. [id number]/[facility] #: [id number] MTDD
[2020-01-13] MEDS: Clindamycin 600 MG/D5W BAG(*) 600 MG/50 ML BAG IV SCH ×2 (14:08→21:21)
[2020-01-14] MEDS: Ibuprofen TAB* 400 MG PO PRN ×3 (00:59→17:01)
[2020-01-14] MEDS: Acetaminophen TAB* 325 MG PO PRN ×4 (04:57→23:19)
[2020-01-14] MEDS: Pantoprazole TAB * 40 MG TAB PO SCH (05:44)
[2020-01-14 06:07] LABS: ABS Basophils 0.1 10^3/ul (0-0.2); ABS Eosinophils 0.2 10^3/ul (0-0.6); ABS Lymphocytes 0.9 10^3/ul (1.0-4.8); ABS Monocytes 0.8 10^3/ul (0-0.8); ABS Neutrophils 6.3 10^3/ul (1.5-7.7); Eosinophil % 1.9 %; Hematocrit 35 % (42-52); Hemoglobin 12.1 g/dL (14.0-18.0); Lymphocyte % 10.6 %; Mean Corpuscular HGB Conc 34 g/dL (31-36); Mean Corpuscular Hemoglobin 31 pg (27-31); Mean Corpuscular Volume 90 fL (80-94); Mean Platelet Volume 6.9 fL (7.4-10.4); Platelet Count 310 10^3/uL (150-450); Red Blood Count 3.91 10^6 /uL (4.18-5.48); Red Cell Distribution Width 14 % (10-15); White Blood Count 8.2 10^3/uL (3.5-10.8)
[2020-01-14] MEDS: Clindamycin 600 MG/D5W BAG(*) 600 MG/50 ML BAG IV SCH ×3 (06:14→21:09)
[2020-01-14 06:27] LABS: BUN/Creatinine Ratio 13.5 (8-20); C Reactive Protein 154.56 mg/L (<8.01); Calcium 8.2 mg/dL (8.6-10.3); EGFR African American 107.8 (>60); EGFR Non-African American 89.1 (>60); Potassium 4.2 mmol/L (3.5-5.0)
[2020-01-14] MEDS: Enoxaparin(*) 40 MG/0.4 ML SYR SUBCUT SCH (08:33)
[2020-01-14] MEDS: Lactobacillus Acidophilus* 1 TAB PO SCH ×2 (08:34→21:08)
[2020-01-14 09:05] LABS: Erythrocyte Sed Rate 111 mm/Hr (0-19)
--- NOTE | 2020-01-14 10:56 | PN ---
Progress Note - Progress Note Date of Service: 01/14/20 SOAP: Subjective: CC: Right LE cellulitis HPI: Mr. Bermeo is a 54 yo male with PMH significant for hx DVT/PE, arthritis and obesity; who presented to the hospital with complaints of right LE pain and swelling and was diagnosed with right LE cellulitis. Denies fever, chills, nausea, vomiting, or diarrhea. Reports continued edema in the right LE and weeping from the skin on the lower leg. Objective: Vital Signs - 8 hr 01/14/20 01/14/20 01/14/20 03:10 07:15 08:00 Temperature 97.6 F 97.8 F Pulse Rate 92 86 Respiratory 16 16 18 Rate Blood Pressure 124/46 149/88 (mmHg) O2 Sat by Pulse 100 99 Oximetry Physical Exam: General: NAD, sitting up on the side of the bed Neurological: Alert and Oriented HEENT: Moist MM Cardiovascular: Heart rate regular. 2+ edema right LE Respiratory: Lung sounds clear bilateral Abdominal: Bowel sounds present; ABD obese, soft, non tender MSK: Able to move right ankle and knee Skin: Erythema below the right knee to foot, there is bullea formation and serous drainage. Right LE is warm to touch Laboratory Results - last 24 hr 01/14/20 01/14/20 05:57 05:57 WBC 8.2 RBC 3.91 L Hgb 12.1 L Hct 35 L MCV 90 MCH 31 MCHC 34 RDW 14 Plt Count 310 MPV 6.9 L Neut % (Auto) 76.7 Lymph % (Auto) 10.6 [place] % (Auto) 10.1 Eos % (Auto) 1.9 Baso % (Auto) 0.7 Absolute Neuts (auto) 6.3 Absolute Lymphs (auto) 0.9 L Absolute Monos (auto) 0.8 Absolute Eos (auto) 0.2 Absolute Basos (auto) 0.1 Absolute Nucleated RBC 0.0 Nucleated RBC % 0.0 ESR 111 H Sodium 138 Potassium 4.2 Chloride 107 Carbon Dioxide 24 Anion Gap 7 BUN 12 Creatinine 0.89 Est GFR ( Amer) 107.8 Est GFR (Non-Af Amer) 89.1 BUN/Creatinine Ratio 13.5 Glucose 114 H Calcium 8.2 L C-Reactive Protein 154.56 H Microbiology 01/12/20 01:56 Aerobic Blood Culture - Preliminary Blood Venous No Growth Day 2 Anaerobic Blood Culture - Preliminary No Growth Day 2 01/12/20 01:41 Aerobic Blood Culture - Preliminary Blood Venous No Growth Day 2 Anaerobic Blood Culture - Preliminary No Growth Day 2 01/12/20 05:26 Urine Culture - Final Urine No Growth (<1,000 CFU/mL) Assessment: 1. Right LE cellulitis. Bullae formation, LE with serous drainage. Suspect this is a Group A strep infection. Blood cultures with no growth to date. Elevated CRP. Afebrile and no leukocytosis. 2. Morbid obesity. BMI 39.1. 3. History DVT/PE. Plan: Continue Clindamycin 600 mg IV every 8 hours. Encourage to keep right LE elevated.
[2020-01-14] MEDS: Acetic Acid 0.25%* 250 ML BTL IRRIGATION SCH ×2 (11:12→19:53)
[2020-01-14] MEDS: Magnesium Sulfate CRYSTAL* 454 GM BOX TOPICAL SCH ×2 (11:12→19:53)
--- NOTE | 2020-01-14 14:45 | PN ---
Subjective Date of Service: 01/14/20 Interval History: Patient seen today, doing well. No fever or chills. leg still swollen. awake appreciate ID input. Past Medical History: Unchanged from Admission Objective Active Medications: Acetaminophen (Tylenol Tab*) 650 mg PO Q4H PRN PRN Reason: PAIN Last Admin: 01/14/20 13:20 Dose: 650 mg Acetic Acid (Acetic Acid 0.25%*) 120 ml IRRIGATION BID [facility] Stop: 01/16/20 21:01 Last Admin: 01/14/20 11:12 Dose: 120 ml Docusate Sodium (Colace Cap*) 100 mg PO BID PRN PRN Reason: CONSTIPATION Enoxaparin Sodium (Lovenox(*)) 40 mg SUBCUT Q24H [facility] Last Admin: 01/14/20 08:33 Dose: 40 mg Clindamycin HCl/Dextrose (Cleocin 600 Mg/50 Ml(*)) 600 mg in 50 mls @ 100 mls/ hr IV 0600,1400,2200 [facility] Last Admin: 01/14/20 13:19 Dose: 100 mls/hr Ibuprofen (Motrin Tab*) 400 mg PO Q6H PRN PRN Reason: PAIN - SEVERE Last Admin: 01/14/20 08:33 Dose: 400 mg Lactobacillus Rhamnosus (Lactobacillus Acidophilus*) 1 tab PO BID [facility] Last Admin: 01/14/20 08:34 Dose: 1 tab Magnesium Sulfate (Epsom Salt*) 0.25 applic TOPICAL BID [facility] Stop: 01/16/20 21:01 Last Admin: 01/14/20 11:12 Dose: 0.25 applic Ondansetron HCl (Zofran Inj*) 4 mg IV Q6H PRN PRN Reason: NAUSEA Pantoprazole Sodium (Protonix Tab*) 40 mg PO DAILY@0600 [facility] Last Admin: 01/14/20 05:44 Dose: Not Given Vital Signs - 8 hr 01/14/20 01/14/20 01/14/20 07:15 08:00 11:15 Temperature 97.8 F 98.1 F Pulse Rate 86 90 Respiratory 16 18 16 Rate Blood Pressure 149/88 146/77 (mmHg) O2 Sat by Pulse 99 97 Oximetry Oxygen Devices in Use Now: None Appearance: awake, alert no distress Eyes: No Scleral Icterus, - - EOMI Ears/Nose/Mouth/Throat: NL Teeth, Lips, Gums Neck: NL Appearance and Movements; NL JVP Respiratory: Symmetrical Chest Expansion and Respiratory Effort, Clear to Auscultation Cardiovascular: NL Sounds; No Murmurs; No JVD, RRR Abdominal: NL Sounds; No Tenderness; No Distention Extremities: - - mulitple confluent bullae, with serrous content and drainage, erythema Result Diagrams: 01/14/20 05:57 01/14/20 05:57 Additional Lab and Data: Lab Results 01/12/20 01/12/20 01/12/20 Range/Units 01:58 01:58 01:58 WBC 13.8 H (3.5-10.8) 10^3/uL RBC 4.55 (4.18-5.48) 10^6 /uL Hgb 13.9 L (14.0-18.0) g/dL Hct 41 L (42-52) % MCV 89 (80-94) fL MCH 31 (27-31) pg MCHC 34 (31-36) g/dL RDW 14 (10-15) % Plt Count 297 (150-450) 10^3/uL MPV 7.3 L (7.4-10.4) fL Neut % (Auto) 83.6 % Lymph % (Auto) 6.6 % [place] % (Auto) 8.4 % Eos % (Auto) 1.0 % Baso % (Auto) 0.4 % Absolute Neuts (auto) 11.6 H (1.5-7.7) 10^3/ul Absolute Lymphs (auto) 0.9 L (1.0-4.8) 10^3/ul Absolute Monos (auto) 1.2 H (0-0.8) 10^3/ul Absolute Eos (auto) 0.1 (0-0.6) 10^3/ul Absolute Basos (auto) 0.1 (0-0.2) 10^3/ul Absolute Nucleated RBC 0.0 10^3/ul Nucleated RBC % 0.0 ESR 118 H (0-19) mm/Hr INR (Anticoag Therapy) 1.36 H (0.82-1.09) Sodium 136 (135-145) mmol/L Potassium 3.8 (3.5-5.0) mmol/L Chloride 101 (101-111) mmol/L Carbon Dioxide 25 (22-32) mmol/L Anion Gap 10 (2-11) mmol/L BUN 17 (6-24) mg/dL Creatinine 1.06 (0.67-1.17) mg/dL Est GFR ( Amer) 88.1 (>60) Est GFR (Non-Af Amer) 72.8 (>60) BUN/Creatinine Ratio 16.0 (8-20) Glucose 110 H (70-100) mg/dL Lactic Acid (0.5-2.0) mmol/L Calcium 9.2 (8.6-10.3) mg/dL Total Bilirubin 0.60 (0.2-1.0) mg/dL AST 40 H (13-39) U/L ALT 83 H (7-52) U/L Alkaline Phosphatase 100 (34-104) U/L Total Protein 7.9 (6.4-8.9) g/dL Albumin 4.0 (3.2-5.2) g/dL Globulin 3.9 (2-4) g/dL Albumin/Globulin Ratio 1.0 (1-3) / Range/Units 01:58 WBC (3.5-10.8) 10^3/uL RBC (4.18-5.48) 10^6 /uL Hgb (14.0-18.0) g/dL Hct (42-52) % MCV (80-94) fL MCH (27-31) pg MCHC (31-36) g/dL RDW (10-15) % Plt Count (150-450) 10^3/uL MPV (7.4-10.4) fL Neut % (Auto) % Lymph % (Auto) % [place] % (Auto) % Eos % (Auto) % Baso % (Auto) % Absolute Neuts (auto) (1.5-7.7) 10^3/ul Absolute Lymphs (auto) (1.0-4.8) 10^3/ul Absolute Monos (auto) (0-0.8) 10^3/ul Absolute Eos (auto) (0-0.6) 10^3/ul Absolute Basos (auto) (0-0.2) 10^3/ul Absolute Nucleated RBC 10^3/ul Nucleated RBC % ESR (0-19) mm/Hr INR (Anticoag Therapy) (0.82-1.09) Sodium (135-145) mmol/L Potassium (3.5-5.0) mmol/L Chloride (101-111) mmol/L Carbon Dioxide (22-32) mmol/L Anion Gap (2-11) mmol/L BUN (6-24) mg/dL Creatinine (0.67-1.17) mg/dL Est GFR ( Amer) (>60) Est GFR (Non-Af Amer) (>60) BUN/Creatinine Ratio (8-20) Glucose (70-100) mg/dL Lactic Acid 1.2 (0.5-2.0) mmol/L Calcium (8.6-10.3) mg/dL Total Bilirubin (0.2-1.0) mg/dL AST (13-39) U/L ALT (7-52) U/L Alkaline Phosphatase (34-104) U/L Total Protein (6.4-8.9) g/dL Albumin (3.2-5.2) g/dL Globulin (2-4) g/dL Albumin/Globulin Ratio (1-3) Microbiology and Other Data: Microbiology 01/12/20 01:41 Aerobic Blood Culture - Preliminary Blood Venous No Growth Day 1 Anaerobic Blood Culture - Preliminary No Growth Day 1 01/12/20 01:56 Aerobic Blood Culture - Preliminary Blood Venous No Growth Day 1 Anaerobic Blood Culture - Preliminary No Growth Day 1 Assess/Plan/Problems-Billing Assessment: 54 y/o male presented to ED for persistent RLE cellulitis failed outpatient Kelfex. Now on Zosyn - Patient Problems (1) Cellulitis Current Visit: Yes Status: Acute Code(s): L03.90 - CELLULITIS, UNSPECIFIED SNOMED Code(s): 651671364 Comment: - Failed outpatient keflex - s/p Zosyn day #2. transioned to clindaymycin 600 mg IV Q6hr day #1 - ID input appreciated. - Xray negative for subcutaneous air - US of leg negative for DVT on admissions - Will soak both feet with soap, water and M[place]ulfate crystal and acetic acid bath bid (2) DVT prophylaxis Current Visit: Yes Status: Acute Code(s): Z29.9 - ENCOUNTER FOR PROPHYLACTIC MEASURES, UNSPECIFIED SNOMED Code(s): 536873030 Comment: - Lovenox 40 mg SQ daily
[2020-01-15] MEDS: Ibuprofen TAB* 400 MG PO PRN ×2 (04:12→17:39)
[2020-01-15] MEDS: Pantoprazole TAB * 40 MG TAB PO SCH (05:40)
[2020-01-15] MEDS: Clindamycin 600 MG/D5W BAG(*) 600 MG/50 ML BAG IV SCH ×3 (05:44→22:11)
[2020-01-15] MEDS: Lactobacillus Acidophilus* 1 TAB PO SCH ×2 (09:50→21:14)
[2020-01-15] MEDS: Acetaminophen TAB* 325 MG PO PRN ×3 (09:50→21:14)
[2020-01-15] MEDS: Enoxaparin(*) 40 MG/0.4 ML SYR SUBCUT SCH (09:51)
[2020-01-15] MEDS: Magnesium Sulfate CRYSTAL* 454 GM BOX TOPICAL SCH ×2 (13:43→20:18)
[2020-01-15] MEDS: Acetic Acid 0.25%* 250 ML BTL IRRIGATION SCH ×2 (13:43→20:17)
--- NOTE | 2020-01-15 16:12 | PN ---
Subjective Date of Service: 01/15/20 Interval History: patient seen, leg improving., his right foot much better now that is being soaked bid. No fever or chills. no events overnight Past Medical History: Unchanged from Admission Objective Active Medications: Acetaminophen (Tylenol Tab*) 650 mg PO Q4H PRN PRN Reason: PAIN Last Admin: 01/15/20 13:43 Dose: 650 mg Acetic Acid (Acetic Acid 0.25%*) 120 ml IRRIGATION BID [facility] Stop: 01/16/20 21:01 Last Admin: 01/15/20 13:43 Dose: 120 ml Docusate Sodium (Colace Cap*) 100 mg PO BID PRN PRN Reason: CONSTIPATION Enoxaparin Sodium (Lovenox(*)) 40 mg SUBCUT Q24H [facility] Last Admin: 01/15/20 09:51 Dose: 40 mg Clindamycin HCl/Dextrose (Cleocin 600 Mg/50 Ml(*)) 600 mg in 50 mls @ 100 mls/ hr IV 0600,1400,2200 [facility] Last Admin: 01/15/20 13:44 Dose: 100 mls/hr Ibuprofen (Motrin Tab*) 400 mg PO Q6H PRN PRN Reason: PAIN - SEVERE Last Admin: 01/15/20 04:12 Dose: 400 mg Lactobacillus Rhamnosus (Lactobacillus Acidophilus*) 1 tab PO BID [facility] Last Admin: 01/15/20 09:50 Dose: 1 tab Magnesium Sulfate (Epsom Salt*) 0.25 applic TOPICAL BID [facility] Stop: 01/16/20 21:01 Last Admin: 01/15/20 13:43 Dose: 0.25 applic Ondansetron HCl (Zofran Inj*) 4 mg IV Q6H PRN PRN Reason: NAUSEA Pantoprazole Sodium (Protonix Tab*) 40 mg PO DAILY@0600 [facility] Last Admin: 01/15/20 05:40 Dose: Not Given Vital Signs - 8 hr 01/15/20 01/15/20 08:00 11:15 Temperature 98 F Pulse Rate 91 Respiratory 16 16 Rate Blood Pressure 136/77 (mmHg) O2 Sat by Pulse 97 Oximetry Oxygen Devices in Use Now: None Appearance: Awake, alert no fever or chills. taking po Eyes: No Scleral Icterus, - - EOMI Ears/Nose/Mouth/Throat: NL Teeth, Lips, Gums, Mucous Membranes Moist Neck: NL Appearance and Movements; NL JVP Respiratory: Symmetrical Chest Expansion and Respiratory Effort, Clear to Auscultation Cardiovascular: NL Sounds; No Murmurs; No JVD, RRR Skin: No Rash or Ulcers Neurological: Alert and Oriented x 3 Result Diagrams: 01/14/20 05:57 01/14/20 05:57 Additional Lab and Data: Lab Results 01/12/20 01/12/20 01/12/20 Range/Units 01:58 01:58 01:58 WBC 13.8 H (3.5-10.8) 10^3/uL RBC 4.55 (4.18-5.48) 10^6 /uL Hgb 13.9 L (14.0-18.0) g/dL Hct 41 L (42-52) % MCV 89 (80-94) fL MCH 31 (27-31) pg MCHC 34 (31-36) g/dL RDW 14 (10-15) % Plt Count 297 (150-450) 10^3/uL MPV 7.3 L (7.4-10.4) fL Neut % (Auto) 83.6 % Lymph % (Auto) 6.6 % [place] % (Auto) 8.4 % Eos % (Auto) 1.0 % Baso % (Auto) 0.4 % Absolute Neuts (auto) 11.6 H (1.5-7.7) 10^3/ul Absolute Lymphs (auto) 0.9 L (1.0-4.8) 10^3/ul Absolute Monos (auto) 1.2 H (0-0.8) 10^3/ul Absolute Eos (auto) 0.1 (0-0.6) 10^3/ul Absolute Basos (auto) 0.1 (0-0.2) 10^3/ul Absolute Nucleated RBC 0.0 10^3/ul Nucleated RBC % 0.0 ESR 118 H (0-19) mm/Hr INR (Anticoag Therapy) 1.36 H (0.82-1.09) Sodium 136 (135-145) mmol/L Potassium 3.8 (3.5-5.0) mmol/L Chloride 101 (101-111) mmol/L Carbon Dioxide 25 (22-32) mmol/L Anion Gap 10 (2-11) mmol/L BUN 17 (6-24) mg/dL Creatinine 1.06 (0.67-1.17) mg/dL Est GFR ( Amer) 88.1 (>60) Est GFR (Non-Af Amer) 72.8 (>60) BUN/Creatinine Ratio 16.0 (8-20) Glucose 110 H (70-100) mg/dL Lactic Acid (0.5-2.0) mmol/L Calcium 9.2 (8.6-10.3) mg/dL Total Bilirubin 0.60 (0.2-1.0) mg/dL AST 40 H (13-39) U/L ALT 83 H (7-52) U/L Alkaline Phosphatase 100 (34-104) U/L Total Protein 7.9 (6.4-8.9) g/dL Albumin 4.0 (3.2-5.2) g/dL Globulin 3.9 (2-4) g/dL Albumin/Globulin Ratio 1.0 (1-3) 02// Range/Units 01:58 WBC (3.5-10.8) 10^3/uL RBC (4.18-5.48) 10^6 /uL Hgb (14.0-18.0) g/dL Hct (42-52) % MCV (80-94) fL MCH (27-31) pg MCHC (31-36) g/dL RDW (10-15) % Plt Count (150-450) 10^3/uL MPV (7.4-10.4) fL Neut % (Auto) % Lymph % (Auto) % [place] % (Auto) % Eos % (Auto) % Baso % (Auto) % Absolute Neuts (auto) (1.5-7.7) 10^3/ul Absolute Lymphs (auto) (1.0-4.8) 10^3/ul Absolute Monos (auto) (0-0.8) 10^3/ul Absolute Eos (auto) (0-0.6) 10^3/ul Absolute Basos (auto) (0-0.2) 10^3/ul Absolute Nucleated RBC 10^3/ul Nucleated RBC % ESR (0-19) mm/Hr INR (Anticoag Therapy) (0.82-1.09) Sodium (135-145) mmol/L Potassium (3.5-5.0) mmol/L Chloride (101-111) mmol/L Carbon Dioxide (22-32) mmol/L Anion Gap (2-11) mmol/L BUN (6-24) mg/dL Creatinine (0.67-1.17) mg/dL Est GFR ( Amer) (>60) Est GFR (Non-Af Amer) (>60) BUN/Creatinine Ratio (8-20) Glucose (70-100) mg/dL Lactic Acid 1.2 (0.5-2.0) mmol/L Calcium (8.6-10.3) mg/dL Total Bilirubin (0.2-1.0) mg/dL AST (13-39) U/L ALT (7-52) U/L Alkaline Phosphatase (34-104) U/L Total Protein (6.4-8.9) g/dL Albumin (3.2-5.2) g/dL Globulin (2-4) g/dL Albumin/Globulin Ratio (1-3) Microbiology and Other Data: Microbiology 01/12/20 01:41 Aerobic Blood Culture - Preliminary Blood Venous No Growth Day 1 Anaerobic Blood Culture - Preliminary No Growth Day 1 01/12/20 01:56 Aerobic Blood Culture - Preliminary Blood Venous No Growth Day 1 Anaerobic Blood Culture - Preliminary No Growth Day 1 Assess/Plan/Problems-Billing Assessment: 54 y/o male presented to ED for persistent RLE cellulitis failed outpatient Kelfex. Now on Zosyn - Patient Problems (1) Cellulitis Current Visit: Yes Status: Acute Code(s): L03.90 - CELLULITIS, UNSPECIFIED SNOMED Code(s): 929801071 Comment: - Failed outpatient keflex - s/p Zosyn day #2. Transioned to clindamycin 600 mg IV Q6hr day #2 - ID input appreciated. - Xray negative for subcutaneous air - US of leg negative for DVT on admissions - Will soak both feet with soap, water and Magsulfate crystal and acetic acid bath bid (2) DVT prophylaxis Current Visit: Yes Status: Acute Code(s): Z29.9 - ENCOUNTER FOR PROPHYLACTIC MEASURES, UNSPECIFIED SNOMED Code(s): 813580442 Comment: - Lovenox 40 mg SQ daily
[2020-01-16] MEDS: Acetaminophen TAB* 325 MG PO PRN ×5 (04:37→23:30)
[2020-01-16] MEDS: Pantoprazole TAB * 40 MG TAB PO SCH (06:26)
[2020-01-16] MEDS: Clindamycin 600 MG/D5W BAG(*) 600 MG/50 ML BAG IV SCH ×3 (06:27→22:19)
[2020-01-16] MEDS: Lactobacillus Acidophilus* 1 TAB PO SCH ×2 (08:26→22:19)
[2020-01-16] MEDS: Enoxaparin(*) 40 MG/0.4 ML SYR SUBCUT SCH (08:26)
[2020-01-16] MEDS: Magnesium Sulfate CRYSTAL* 454 GM BOX TOPICAL SCH ×2 (09:47→22:19)
[2020-01-16] MEDS: Acetic Acid 0.25%* 250 ML BTL IRRIGATION SCH ×2 (09:47→22:19)
--- NOTE | 2020-01-16 12:58 | PN ---
Subjective Date of Service: 01/16/20 Interval History: Patient seen feels better, he is eager to go home. tolerating med and compliant with his foot bath Past Medical History: Unchanged from Admission Objective Active Medications: Acetaminophen (Tylenol Tab*) 650 mg PO Q4H PRN PRN Reason: PAIN Last Admin: 01/16/20 08:25 Dose: 650 mg Acetic Acid (Acetic Acid 0.25%*) 120 ml IRRIGATION BID [facility] Stop: 01/16/20 21:01 Last Admin: 01/16/20 09:47 Dose: 120 ml Docusate Sodium (Colace Cap*) 100 mg PO BID PRN PRN Reason: CONSTIPATION Enoxaparin Sodium (Lovenox(*)) 40 mg SUBCUT Q24H [facility] Last Admin: 01/16/20 08:26 Dose: 40 mg Furosemide (Lasix Tab*) 20 mg PO DAILY [facility] Clindamycin HCl/Dextrose (Cleocin 600 Mg/50 Ml(*)) 600 mg in 50 mls @ 100 mls/ hr IV 0600,1400,2200 [facility] Last Admin: 01/16/20 06:27 Dose: 100 mls/hr Ibuprofen (Motrin Tab*) 400 mg PO Q6H PRN PRN Reason: PAIN - SEVERE Last Admin: 01/15/20 17:39 Dose: 400 mg Lactobacillus Rhamnosus (Lactobacillus Acidophilus*) 1 tab PO BID [facility] Last Admin: 01/16/20 08:26 Dose: 1 tab Magnesium Sulfate (Epsom Salt*) 0.25 applic TOPICAL BID [facility] Stop: 01/16/20 21:01 Last Admin: 01/16/20 09:47 Dose: 0.25 applic Ondansetron HCl (Zofran Inj*) 4 mg IV Q6H PRN PRN Reason: NAUSEA Pantoprazole Sodium (Protonix Tab*) 40 mg PO DAILY@0600 [facility] Last Admin: 01/16/20 06:26 Dose: 40 mg Vital Signs - 8 hr 01/16/20 01/16/20 07:15 11:14 Temperature 97.5 F 98 F Pulse Rate 89 91 Respiratory 14 18 Rate Blood Pressure 147/78 132/72 (mmHg) O2 Sat by Pulse 98 99 Oximetry Oxygen Devices in Use Now: None Appearance: awake, alert no fever or chills Ears/Nose/Mouth/Throat: Mucous Membranes Moist Neck: NL Appearance and Movements; NL JVP, Trachea Midline Respiratory: Symmetrical Chest Expansion and Respiratory Effort, Clear to Auscultation Cardiovascular: NL Sounds; No Murmurs; No JVD, - - +2 edema RLE, trace edema LLE Abdominal: NL Sounds; No Tenderness; No Distention Skin: - - mulitple confluent bullae, with serrous content and drainage, erythema Neurological: Alert and Oriented x 3 Result Diagrams: 01/14/20 05:57 01/14/20 05:57 Additional Lab and Data: Lab Results 01/12/20 01/12/20 01/12/20 Range/Units 01:58 01:58 01:58 WBC 13.8 H (3.5-10.8) 10^3/uL RBC 4.55 (4.18-5.48) 10^6 /uL Hgb 13.9 L (14.0-18.0) g/dL Hct 41 L (42-52) % MCV 89 (80-94) fL MCH 31 (27-31) pg MCHC 34 (31-36) g/dL RDW 14 (10-15) % Plt Count 297 (150-450) 10^3/uL MPV 7.3 L (7.4-10.4) fL Neut % (Auto) 83.6 % Lymph % (Auto) 6.6 % [place] % (Auto) 8.4 % Eos % (Auto) 1.0 % Baso % (Auto) 0.4 % Absolute Neuts (auto) 11.6 H (1.5-7.7) 10^3/ul Absolute Lymphs (auto) 0.9 L (1.0-4.8) 10^3/ul Absolute Monos (auto) 1.2 H (0-0.8) 10^3/ul Absolute Eos (auto) 0.1 (0-0.6) 10^3/ul Absolute Basos (auto) 0.1 (0-0.2) 10^3/ul Absolute Nucleated RBC 0.0 10^3/ul Nucleated RBC % 0.0 ESR 118 H (0-19) mm/Hr INR (Anticoag Therapy) 1.36 H (0.82-1.09) Sodium 136 (135-145) mmol/L Potassium 3.8 (3.5-5.0) mmol/L Chloride 101 (101-111) mmol/L Carbon Dioxide 25 (22-32) mmol/L Anion Gap 10 (2-11) mmol/L BUN 17 (6-24) mg/dL Creatinine 1.06 (0.67-1.17) mg/dL Est GFR ( Amer) 88.1 (>60) Est GFR (Non-Af Amer) 72.8 (>60) BUN/Creatinine Ratio 16.0 (8-20) Glucose 110 H (70-100) mg/dL Lactic Acid (0.5-2.0) mmol/L Calcium 9.2 (8.6-10.3) mg/dL Total Bilirubin 0.60 (0.2-1.0) mg/dL AST 40 H (13-39) U/L ALT 83 H (7-52) U/L Alkaline Phosphatase 100 (34-104) U/L Total Protein 7.9 (6.4-8.9) g/dL Albumin 4.0 (3.2-5.2) g/dL Globulin 3.9 (2-4) g/dL Albumin/Globulin Ratio 1.0 (1-3) 01/12/20 Range/Units 01:58 WBC (3.5-10.8) 10^3/uL RBC (4.18-5.48) 10^6 /uL Hgb (14.0-18.0) g/dL Hct (42-52) % MCV (80-94) fL MCH (27-31) pg MCHC (31-36) g/dL RDW (10-15) % Plt Count (150-450) 10^3/uL MPV (7.4-10.4) fL Neut % (Auto) % Lymph % (Auto) % [place] % (Auto) % Eos % (Auto) % Baso % (Auto) % Absolute Neuts (auto) (1.5-7.7) 10^3/ul Absolute Lymphs (auto) (1.0-4.8) 10^3/ul Absolute Monos (auto) (0-0.8) 10^3/ul Absolute Eos (auto) (0-0.6) 10^3/ul Absolute Basos (auto) (0-0.2) 10^3/ul Absolute Nucleated RBC 10^3/ul Nucleated RBC % ESR (0-19) mm/Hr INR (Anticoag Therapy) (0.82-1.09) Sodium (135-145) mmol/L Potassium (3.5-5.0) mmol/L Chloride (101-111) mmol/L Carbon Dioxide (22-32) mmol/L Anion Gap (2-11) mmol/L BUN (6-24) mg/dL Creatinine (0.67-1.17) mg/dL Est GFR ( Amer) (>60) Est GFR (Non-Af Amer) (>60) BUN/Creatinine Ratio (8-20) Glucose (70-100) mg/dL Lactic Acid 1.2 (0.5-2.0) mmol/L Calcium (8.6-10.3) mg/dL Total Bilirubin (0.2-1.0) mg/dL AST (13-39) U/L ALT (7-52) U/L Alkaline Phosphatase (34-104) U/L Total Protein (6.4-8.9) g/dL Albumin (3.2-5.2) g/dL Globulin (2-4) g/dL Albumin/Globulin Ratio (1-3) Microbiology and Other Data: Microbiology 01/12/20 01:41 Aerobic Blood Culture - Preliminary Blood Venous No Growth Day 1 Anaerobic Blood Culture - Preliminary No Growth Day 1 01/12/20 01:56 Aerobic Blood Culture - Preliminary Blood Venous No Growth Day 1 Anaerobic Blood Culture - Preliminary No Growth Day 1 Assess/Plan/Problems-Billing Assessment: 54 y/o male presented to ED for persistent RLE cellulitis failed outpatient Kelfex. Now on Zosyn - Patient Problems (1) Cellulitis Current Visit: Yes Status: Acute Code(s): L03.90 - CELLULITIS, UNSPECIFIED SNOMED Code(s): 578540506 Comment: - Failed outpatient keflex - s/p Zosyn day #2. Transioned to clindamycin 600 mg IV Q6hr day #3 - ID input appreciated. - Xray negative for subcutaneous air - US of leg negative for DVT on admissions - Will soak both feet with soap, water and Magsulfate crystal and acetic acid bath bid (2) DVT prophylaxis Current Visit: Yes Status: Acute Code(s): Z29.9 - ENCOUNTER FOR PROPHYLACTIC MEASURES, UNSPECIFIED SNOMED Code(s): 044471503 Comment: - Lovenox 40 mg SQ daily Status and Disposition: Possible discharge 01/17/20 will need Wound care referral
[2020-01-16] MEDS: Furosemide TAB* 20 MG PO SCH (13:07)
[2020-01-16] MEDS: Ibuprofen TAB* 400 MG PO PRN (15:32)
[2020-01-17] MEDS: Clindamycin 600 MG/D5W BAG(*) 600 MG/50 ML BAG IV SCH (05:42)
[2020-01-17] MEDS: Pantoprazole TAB * 40 MG TAB PO SCH (05:42)
[2020-01-17 07:34] LABS: ABS Eosinophils 0.1 10^3/ul (0-0.6); ABS Lymphocytes 0.9 10^3/ul (1.0-4.8); ABS Monocytes 0.7 10^3/ul (0-0.8); ABS Neutrophils 6.8 10^3/ul (1.5-7.7); Eosinophil % 1.5 %; Hematocrit 39 % (42-52); Hemoglobin 13.2 g/dL (14.0-18.0); Lymphocyte % 10.7 %; Mean Corpuscular HGB Conc 34 g/dL (31-36); Mean Corpuscular Hemoglobin 30 pg (27-31); Mean Corpuscular Volume 90 fL (80-94); Platelet Count 391 10^3/uL (150-450); Red Blood Count 4.36 10^6 /uL (4.18-5.48); Red Cell Distribution Width 14 % (10-15); White Blood Count 8.5 10^3/uL (3.5-10.8)
[2020-01-17 07:57] LABS: BUN/Creatinine Ratio 15.6 (8-20); Calcium 8.5 mg/dL (8.6-10.3); EGFR African American 106.4 (>60); EGFR Non-African American 87.9 (>60); Potassium 4.3 mmol/L (3.5-5.0)
[2020-01-17] MEDS: Acetaminophen TAB* 325 MG PO PRN ×2 (07:57→13:56)
[2020-01-17] MEDS: Lactobacillus Acidophilus* 1 TAB PO SCH (09:24)
[2020-01-17] MEDS: Enoxaparin(*) 40 MG/0.4 ML SYR SUBCUT SCH (09:24)
[2020-01-17] MEDS: Furosemide TAB* 20 MG PO SCH (10:08)
--- NOTE | 2020-01-17 11:26 | PN ---
Progress Note - Progress Note Date of Service: 01/17/20 SOAP: Subjective: CC: Right LE cellulitis HPI: Mr. Bermeo is a 54 yo male with PMH significant for hx DVT/PE, arthritis and obesity; who presented to the hospital with complaints of right LE pain and swelling and was diagnosed with right LE cellulitis. Denies fever, chills, nausea, vomiting, or diarrhea. Reports improving edema in the right LE and weeping from the skin on the lower leg. She noticed an itchy rash this morning on the right thigh. Objective: Vital Signs - 8 hr 01/17/20 01/17/20 01/17/20 03:48 07:15 08:00 Temperature 98.1 F 97.3 F Pulse Rate 84 94 Respiratory 16 18 18 Rate Blood Pressure 149/71 154/80 (mmHg) O2 Sat by Pulse 99 100 Oximetry Physical Exam: General: NAD, sitting up on the side of the bed Neurological: Alert and Oriented HEENT: Moist MM Cardiovascular: Heart rate regular. 2+ edema right LE Respiratory: Lung sounds clear bilateral Abdominal: Bowel sounds present; ABD obese, soft, non tender MSK: Able to move right ankle and knee Skin: Erythema below the right knee to foot, there is bullea formation and serous drainage. Right LE is warm to touch, overall improvement from last week. There is a maculopapular rash to the lateral and posterior right thigh. Laboratory Results - last 24 hr 01/17/20 01/17/20 07:20 07:20 WBC 8.5 RBC 4.36 Hgb 13.2 L Hct 39 L MCV 90 MCH 30 MCHC 34 RDW 14 Plt Count 391 MPV 7.0 L Neut % (Auto) 79.4 Lymph % (Auto) 10.7 [place] % (Auto) 8.0 Eos % (Auto) 1.5 Baso % (Auto) 0.4 Absolute Neuts (auto) 6.8 Absolute Lymphs (auto) 0.9 L Absolute Monos (auto) 0.7 Absolute Eos (auto) 0.1 Absolute Basos (auto) 0.0 Absolute Nucleated RBC 0.0 Nucleated RBC % 0.0 Sodium 138 Potassium 4.3 Chloride 106 Carbon Dioxide 25 Anion Gap 7 BUN 14 Creatinine 0.90 Est GFR ( Amer) 106.4 Est GFR (Non-Af Amer) 87.9 BUN/Creatinine Ratio 15.6 Glucose 102 H Calcium 8.5 L Microbiology 01/12/20 01:41 Aerobic Blood Culture - Final Blood Venous No Growth Day 5 Anaerobic Blood Culture - Final No Growth Day 5 01/12/20 01:56 Aerobic Blood Culture - Final Blood Venous No Growth Day 5 Anaerobic Blood Culture - Final No Growth Day 5 01/12/20 05:26 Urine Culture - Final Urine No Growth (<1,000 CFU/mL) Assessment: 1. Right LE cellulitis. Bullae formation, LE with serous drainage. Suspect this is a Group A strep infection. Blood cultures with no growth to date. Elevated CRP, but is improving. Afebrile and no leukocytosis. Has developed a rash to the right thigh overnight. 2. Maculopapular rash to the right thigh. Suspect this is secondary to the Clindamycin 3. Morbid obesity. BMI 39.1. 4. History DVT/PE. Plan: Discontinue Clindamycin and start cephalexin (noted to have been on this at time of admission, do not feel that he had an ABX failure, likely needed initial IV ABX for treatment) to complete a 14 day course. Day 6 of ABX. Encourage to keep right LE elevated.
[2020-01-17 19:49] VITALS: BP 147/81
--- NOTE | 2020-01-18 00:16 | DS ---
CC: Dr. Torres; Wound Clinic; Dr. Santos Davis; [facility] * DISCHARGE SUMMARY: DATE OF ADMISSION: DATE OF DISCHARGE: DISCHARGE DIAGNOSES: 1. Right lower extremity cellulitis. 2. Lower extremity edema. ADDITIONAL DISCHARGE DIAGNOSES: Prior history of deep vein thrombosis, this has been ruled out during this admission. HOSPITAL COURSE: This is a 54-year-old male, who presented to the emergency room for recurrent persistent right lower extremity cellulitis, failed oral Keflex at home and on admission, he did have significant erythema and tenderness of his right lower extremity. He had an ultrasound of the leg, which did show negative for DVT. Given the fact that the patient was 4 days prior to this presentation in the emergency room and the fact he was given Keflex and he had an ultrasound at the same time 4 days ago, now he comes in with worsening swelling and edema despite Keflex, he was started on IV Zosyn, admitted to the medicine service and Infectious Disease was consulted for further recommendation. His right lower extremity did show significant bullous and erythema and crusted vesicle with oozing yellow secretion fluid. Infectious Disease did see and evaluate the patient and they recommended switching him to IV clindamycin as it is most likely related to streptococcus infection. The patient was maintained in the hospital. He was maintained on IV clindamycin and I did suggest to soak his feet with lukewarm water and soap along with 4 ounces of Epsom salt and white vinegar. Yesterday, on 01/16/20, he started having some rash and erythema on the right lower extremity, which is past his marginal marking from his infection after it was improving on clindamycin. Therefore, I do think that this is a drug reaction, which is most likely due to his clindamycin. Therefore, I spoke with Infectious Disease and they did recommend to discontinue the clindamycin as he may have allergy to it and to place him on oral Keflex. The chances that he actually did fill Keflex on his outpatient ER is unlikely and it is most likely that was not being absorbed or he did not have sufficient adequate therapy course. Therefore, he will be provided Keflex 500 mg four times a day and referral to the wound clinic and to follow with Infectious Disease. DISCHARGE PHYSICAL EXAMINATION: Vital Signs: Temperature 97.7, pulse 84, respiratory rate 14, satting 98%, blood pressure 130/63. Generally, he is awake , alert, pleasant, no apparent distress. Head and Neck: Normocephalic, atraumatic. Poor hygiene. Abdomen: Positive bowel sounds, obese. Lower Extremity: He does have severe onychomycosis bilateral with poor hygiene. His right lower extremity, he still has erythema and edematous. His cellulitis has receded with significant crusted and bullous present with confluent bulla and serous content and drainage with erythema and it started to minimally began to slough off. Skin: He does have macular rash, which is new, started last evening which is consistent with a drug reaction from most likely his clindamycin. INPATIENT DIAGNOSTIC STUDY: Imaging study: He had ultrasound of the lower extremity, on 01/12/20, which was negative for DVT on the right side. X-ray of the lower extremity did not show subcutaneous emphysema, diffuse edema though throughout the soft tissue. Microbiology: Urine blood cultures were negative. LABORATORY DATA: White count was 13,000 down to 8. ESR was 118. Chemistry: CRP 264 on 01/12/20 down to 154 on 01/14/20. Anti-streptolysin titer was negative. DISCHARGE MEDICATIONS: The patient is being discharged on: 1. Keflex 500 mg p.o. four times a day to continue additional 7 days. 2. Tylenol 650 p.r.n. 3. Colace 100 b.i.d. for constipation. 4. Lasix 20 mg daily just for 5 days to help subside the edema. 5. Ibuprofen 400 every 6 hours as needed. 6. Lactobacillus twice a day while on antibiotic. 7. Tramadol which he has from his ER visit to continue 50 mg as needed. DISCHARGE RECOMMENDATION: 1. The patient to cover his leg with a dry Kerlix when he is public, remove it once at home. Wash it with soap and water and pat it dry. 2. Follow up with wound clinic in 1 week and was scheduled on 01/21/20. 3. Call and schedule appointment with [facility] with primary. 4. Call and schedule an appointment with Dr. Davis. 5. Take all medications as prescribed. 6. Follow up with Dr. Torres in the wound clinic, scheduled for him at 9:45 this coming Friday, on 01/19/20. 7. The patient to remain out of work until he is cleared to return to work by the wound clinic or his primary care. 8. Keep leg elevated. Use the CAM boot to help offload pressure and a walker was provided to help with his ambulation. [id number]/[facility] #: [id number] MADELINE
== END 2020-01-17 19:00 | disposition home health service (06) | DRG 603 ==
LOC: ED 00:01 → MED 09:50
PROVIDERS: ADMIT Internal Medicine; ATTEND Internal Medicine
DX: L03.115 Cellulitis of right lower limb (principal); R23.8 Other skin changes; B95.0 Streptococcus, group A, as the cause of diseases classified elsewhere; L27.0 Generalized skin eruption due to drugs and medicaments taken internally; T36.8X5A Adverse effect of other systemic antibiotics, initial encounter; Y92.239 Unspecified place in hospital as the place of occurrence of the external cause; M15.0 Primary generalized (osteo)arthritis; E66.01 Morbid (severe) obesity due to excess calories; Z68.39 Body mass index [BMI] 39.0-39.9, adult; Z86.711 Personal history of pulmonary embolism; Z86.718 Personal history of other venous thrombosis and embolism; Z28.21 Immunization not carried out because of patient refusal; Z91.018 Allergy to other foods
CPT/HCPCS: 36415; 80048; 80053; 81003; 81015; 83605; 83735; 84100; 85025; 85610; 85652; 86060; 86140; 87040; 87086; 96365; 99284; A9270-GY; J1650; J2543